=== PATIENT | female | born 1965 | race Caucasian/White ===

== ENCOUNTER 2020-09-26 14:53 | Emergency (ER) | payer BC, SELFPAY ==
[2020-09-26 15:01] VITALS: BP 149/90; PULSE 85; RESP 16; TEMP 36.5; O2SAT 100
--- NOTE | 2020-09-26 15:02 | ED.SKABFB ---
HPI - Skin/Abscess/Foreign Bdy General Chief complaint: Skin/Abscess/Foreign Body Stated complaint: rash Source: patient Mode of arrival: ambulatory Limitations: no limitations History of Present Illness HPI narrative: Patient is a 55-year-old female who presents complaining of rash to right upper thigh x2 days. She reports mildly itchy/burning feeling. She reports sister recently had shingles. Patient denies any significant health conditions. She denies using any new soaps, shampoos, lotions or detergents. She denies all other complaints. MD complaint: rash Related Data Home Medications Medication Instructions Recorded Confirmed levothyroxine [Synthroid] 88 mcg PO DAILY 09/26/20 09/26/20 spironolactone 100 mg PO DAILY 09/26/20 09/26/20 Allergies Allergy/AdvReac Type Severity Reaction Status Date / Time No Known Allergies Allergy Verified 09/26/20 15:06 Review of Systems Review of Systems: Narrative: CONSTITUTIONAL: Denies fever, chills, or sweats. EYES: Denies visual changes, redness, or discharge. ENT: Denies rhinorrhea, congestion, sore throat, or otalgia. CARDIOVASCULAR: Denies chest pain, palpitations, or edema. RESPIRATORY: Denies cough or dyspnea. GASTROINTESTINAL: Denies abdominal pain, nausea, vomiting, or diarrhea. GENITOURINARY: Denies dysuria or hematuria. SKIN: Rash to right upper thigh MUSCULOSKELETAL: Denies back pain, joint pain, or myalgia. NEUROLOGIC: Denies headache, numbness, dizziness, or weakness. PSYCHIATRIC: Denies anxiety or depression. [facility] Past Medical History Medical History (Updated 09/26/20 @ 15:19 by PELON White) No significant past medical history Surgical History Surgical History (Updated 09/26/20 @ 15:19 by PELON White) No significant past surgical history Family History Family History (Updated 09/26/20 @ 15:19 by PELON White) Other No significant family history Social History Social History (Updated 09/26/20 @ 15:19 by PELON White) Smoking status: Never smoker Alcohol intake: never Substance use: never Living arrangements: with family Comments At the time of signature, I have reviewed and agree with nursing past medical, surgical, social, and family history unless otherwise noted. Please see nursing chart for further information. There is no relevant family history pertinent to the presenting complaint. Exam Narrative: Exam Narrative: GENERAL: Well-appearing, well-nourished, and in no acute distress. HEAD: Normocephalic, atraumatic. EYES: EOMI. No redness or drainage. Conjunctiva are normal. ENT: Mucous membranes pink and moist. CHEST: No respiratory distress. HEART: Regular rate and rhythm. EXTREMITIES: Normal range of motion. SKIN: Erythematous, maculopapular rash to right upper thigh, small amount of pustules. NEURO: No focal deficits. Alert and oriented x3. Gait steady. PSYCH: Normal affect. No signs of depression or anxiety. Course Vital Signs Vital signs: Vital Signs Temperature 36.5 C 09/26/20 15:01 Pulse Rate 85 09/26/20 15:01 Respiratory Rate 16 09/26/20 15:01 Blood Pressure 149/90 H 09/26/20 15:01 Pulse Oximetry 100 09/26/20 15:01 Temperature 36.5 C 09/26/20 15:01 Pulse Rate 85 09/26/20 15:01 Respiratory Rate 16 09/26/20 15:01 Blood Pressure 149/90 H 09/26/20 15:01 Pulse Oximetry 100 09/26/20 15:01 Reviewed MDM - Skin/Abscess/Foreign Bdy MDM Narrative Medical decision making narrative: Patient has probable shingles to right upper thigh. Patient started on acyclovir at this time. Patient instructed on pain relief as well. Patient instructed to follow-up with her PCP in 3 to 5 days if symptoms persist. Patient agrees with plan of care. Patient is stable for discharge home with outpatient follow-up as directed. Differential Diagnosis Differential diagnosis: Likely herpes zoster, impetigo and contact dermatitis Critical Care Time Critic
== END 2020-09-26 15:21 | disposition home or self-care (01) ==
PROVIDERS: Emergency Provider Nurse Practitioner; PCP Family Medicine
DX: B02.9 Zoster without complications (principal)
CPT/HCPCS: 99213; G0463

== ENCOUNTER 2020-11-17 07:22 | Outpatient (CLI) | payer BC, SELFPAY ==
[2020-11-17 12:35] LABS: Anion Gap 5 mmol/L (8-16); Blood Urea Nitrogen 14 mg/dL (7-17); Calcium 9.3 mg/dL (8.4-10.2); Carbon Dioxide 31 mmol/L (22-30); Chloride 103 mmol/L (98-107); Estimated Glomerular Filt Rate > 60; Glucose 105 mg/dL (65-105); Potassium 4.6 mmol/L (3.4-5.0); Sodium 139 mmol/L (137-145)
[2020-11-17 12:53] LABS: Free T4 Free Thyroxine 1.46 ng/mL (0.78-2.19); Vitamin D 25 Hydroxy 92.1 ng/mL
[2020-11-17 13:06] LABS: Thyroid Stimulating Hormone 0.963 uIU/mL (0.465-4.680)
[2020-11-20 08:15] LABS: Triiodothyronine T3 Free 3.1 pg/mL (2.3-4.2)
== END 2020-11-17 07:23 | disposition home or self-care (01) ==
LOC: ANHWCLAB 07:28
PROVIDERS: PCP Family Medicine; Referring Provider Dermatology; Visit Provider Internal Medicine Endocrinology, Diabetes & Metabolism
DX: E03.9 Hypothyroidism, unspecified (principal); E04.1 Nontoxic single thyroid nodule; R79.89 Other specified abnormal findings of blood chemistry; Z79.899 Other long term (current) drug therapy
CPT/HCPCS: 36415; 80048; 82306; 84439; 84443; 84481

== ENCOUNTER 2020-11-17 07:58 | Outpatient (CLI) | payer BC, SELFPAY ==
--- NOTE | ~2020-11-17 | US_ITS ---
EXAMINATION: US thyroid EXAM DATE: 11/17/2020 08:36 INDICATION: R79.89 - Other specified abnormal findings of blood chemistry. TECHNIQUE: Multiple grayscale and Doppler images of the thyroid were obtained (by a technologist who performed the scan) and subsequently reviewed. Individual nodules and recommendations may be reporte d in accordance with TI-RADS system as designated by the 2017 ACR White Paper TI-RADS committee. The re is no prior study for comparison. FINDINGS: Right-sided thyroidectomy bed is unremarkable. The left thyroid lobe measures 4.9 x 1.5 x 2.3 cm. Sev eral thyroid nodules, largest measuring 1.4 x 0.8 x 1.5 cm, predominantly solid (2 points), hypoechoi c (2 points), wider than tall, smooth well defined margin, without echogenic foci, category TR4 for t his nodule. Next largest is just slightly smaller than this nodule and has identical overall appeara nce. For category TR 4 lesions, biopsy typically recommended if these reach 1.5 cm in greatest dimension. Both of the nodules have similar appearance and would be unusual to have 2 similar appearing malignan cies. Patient has likely had thyroid ultrasounds at outside institution. Consider asking patient to o btain those studies to compare to this exam, and an addendum can be added. IMPRESSION: 1. Left thyroid nodules up to 1.5 cm. Could consider ultrasound-guided FNA, comparison with outside study if available, or follow-up ultrasound in one year. 2. Unremarkable right thyroidectomy bed. Reviewed, dictated and finalized at location A. IMPRESSION: 1. Left thyroid nodules up to 1.5 cm. Could consider ultrasound-guided FNA, co mparison with outside study if available, or follow-up ultrasound in one year. 2. Unremarkable right thyroidectomy bed.
== END 2020-11-17 07:59 | disposition home or self-care (01) ==
PROVIDERS: PCP Family Medicine; Visit Provider Internal Medicine Endocrinology, Diabetes & Metabolism
DX: E03.9 Hypothyroidism, unspecified (principal); E04.1 Nontoxic single thyroid nodule; R79.89 Other specified abnormal findings of blood chemistry
CPT/HCPCS: 76536

== ENCOUNTER 2021-12-28 07:53 | Outpatient (CLI) | payer BC, SELFPAY ==
--- NOTE | ~2021-12-28 | US_ITS ---
EXAMINATION: US thyroid DATE: 12/28/2021 08:37 INDICATION: Nontoxic single thyroid nodule. TECHNIQUE: Multiple ultrasound images of the thyroid were obtained. COMPARISON: Ultrasound 11/17/2020 FINDINGS: The right thyroid lobe measures 1.5 x 0.8 x 0.9 cm. The left thyroid lobe measures 5.5 x 2.5 x 1.9 c m. In the left thyroid lobe, there is a 1.8 cm mixed cystic and solid, hypoechoic, wider than tall n odule with smooth margin without echogenic foci (TI-RADS TR3), the solid portion of which is stable f rom 11/17/20. In the left thyroid lobe, there is a 1.2 cm solid, hypoechoic, wider than tall nodule wi th smooth margin and punctate echogenic foci (TR5), likely stable in size from 11/17/20. Note that thi s nodule is less well visualized on the prior exam. In the left thyroid lobe, there is a 1.7 cm mixed cystic and solid, hypoechoic, wider than tall nodule with ill-defined margin without echogenic foci (TR3), stable from 11/17/20. IMPRESSION: 1. Stable multinodular goiter. Given the history of outside benign biopsies and right-sided thyroidec andrea, comparison with old imaging is recommended to determine management. Reviewed, dictated and finalized at location A. IMPRESSION: 1. Stable multinodular goiter. Given the history of outside benign biopsies and right-sided thyroidectomy, comparison with old imaging is recommended to deter mine management.
== END 2021-12-28 07:54 | disposition home or self-care (01) ==
LOC: ANHIMG 07:55
PROVIDERS: PCP Family Medicine; Visit Provider Internal Medicine Endocrinology, Diabetes & Metabolism
DX: E04.2 Nontoxic multinodular goiter (principal)
CPT/HCPCS: 76536

== ENCOUNTER 2022-03-13 07:32 | Outpatient (CLI) | payer BC, SELFPAY ==
--- NOTE | ~2022-03-13 | DEXA_ITS ---
Bone Density Report Name: CHICHO DRAPER Age: 56 Sex: Female Ethnicity: White Date of : 1965 Indication: postmenopausal; screening for osteoporosis; parental hip fracture; height loss; Referring Provider: JAROCHO BENITEZ Study: Bone densitometry was performed. Exam Date: March 13, 2022 Accession number: [id number] Bone Density: Region BMD T-score Z-score Classification AP Spine(L1-L4) 1.021 -0.2 0.9 Normal Femoral Neck (Left) 0.799 -0.4 0.7 Normal Total Hip (Left) 0.856 -0.7 0.1 Normal Femoral Neck (Right) 0.763 -0.8 0.4 Normal Total Hip (Right) 0.888 -0.4 0.3 Normal Total Hip Mean 0.872 -0.6 0.2 Normal World Health Organization criteria for BMD impression classify patients as: Normal (T-score at or above -1.0), Osteopenia (T-score between -1.0 and -2.5), or Osteoporosis (T-score at or below -2.5). 10-year Fracture Risk: FRAX not reported because: All T-scores for Spine Total, Hip Total, Femoral Neck at or above -1.0 Clinical Information Provided by Patient: Parent has had a hip fracture Has used the following medications: Vitamin D Patient maximum height was 64 Menopause Age: 50 Drinks caffeinated beverages Onset of menses at age 13 Number of children 0 Impression: The patient has normal bone mass. The patient has risk factors, including: parental hip fracture. Discussion: BONE DENSITY IS ABOVE THE MINIMUM DESIRABLE LEVEL AT ALL SKELETAL SITES TESTED. This patient?s bone mineral density is above the minimum desirable level (T-score -1.0 or better) at all sites measured. The patient should follow a healthful lifestyle (good nutrition with adequate calcium and vitamin D, and appropriate weight-bearing exercise). Follow-Up: Consider repeating this study in 5 years or sooner if there is some new clinical indication. Reported by: [facility] on 03/13/2022 7:54:00 AM. Reviewed, dictated and finalized at location Joe REYES
== END 2022-03-13 07:33 | disposition home or self-care (01) ==
LOC: ANHIMG 07:33
PROVIDERS: PCP Family Medicine; Visit Provider Internal Medicine Endocrinology, Diabetes & Metabolism
DX: Z78.0 Asymptomatic menopausal state (principal); M85.80 Other specified disorders of bone density and structure, unspecified site
CPT/HCPCS: 77080

== ENCOUNTER 2022-12-14 08:34 | Outpatient (CLI) | payer BC, SELFPAY ==
[2022-12-14 10:37] LABS: Free T4 Free Thyroxine 1.61 ng/mL (0.78-2.19); Vitamin D 25 Hydroxy 71.9 ng/mL
== END 2022-12-14 08:35 | disposition home or self-care (01) ==
PROVIDERS: PCP Family Medicine; Visit Provider Internal Medicine Endocrinology, Diabetes & Metabolism
DX: E03.9 Hypothyroidism, unspecified (principal); E04.1 Nontoxic single thyroid nodule; R79.89 Other specified abnormal findings of blood chemistry; M85.80 Other specified disorders of bone density and structure, unspecified site
CPT/HCPCS: 36415; 82306; 84439; 84443

== ENCOUNTER 2023-12-19 07:55 | Outpatient (CLI) | payer BC, SELFPAY ==
--- NOTE | ~2023-12-19 | US_ITS ---
EXAMINATION: US thyroid DATE: 12/19/2023 08:13 INDICATION: Hypothyroidism, unspecified. TECHNIQUE: Multiple ultrasound images of the thyroid were obtained. COMPARISON: Thyroid ultrasound 12/28/2021, 11/17/2021 FINDINGS: The right thyroid lobe measures 1.9 x 1.0 x 0.8 cm. The left thyroid lobe measures 5.2 x 2.4 x 1.9 c m. In the left thyroid lobe, there is a 1.5 cm mixed cystic and solid, hypoechoic, wider than tall n odule with well-defined margins without echogenic foci (TI-RADS TR3), stable from 11/17/20. The left t hyroid lobe, there is a 16 mm hypoechoic, solid, wider than tall nodule with smooth margins without e chogenic foci (TR4), stable from 11/17/20. In the left thyroid lobe, there is a 13 mm solid, hypoechoi c, wider than tall nodule with smooth margins and punctate echogenic foci (TR5), stable from 11/17/20. IMPRESSION: 1. Multinodular goiter status post right hemithyroidectomy, stable from 11/17/2020. Reviewed, dictated and finalized at location E. IMPRESSION: 1. Multinodular goiter status post right hemithyroidectomy, stable from 11/18/19 21.
== END 2023-12-19 07:56 ==
PROVIDERS: PCP Family Medicine; Visit Provider Internal Medicine Endocrinology, Diabetes & Metabolism
DX: E03.9 Hypothyroidism, unspecified (principal); E04.2 Nontoxic multinodular goiter
CPT/HCPCS: 76536

== ENCOUNTER 2023-12-19 08:12 | Outpatient (CLI) | payer BC, SELFPAY ==
[2023-12-19 19:30] LABS: Free T4 Free Thyroxine 1.78 ng/mL (0.78-2.19)
[2023-12-19 19:59] LABS: Thyroid Stimulating Hormone 0.513 uIU/mL (0.465-4.680)
== END 2023-12-19 08:13 | disposition home or self-care (01) ==
LOC: ANHGOSHLAB 08:14
PROVIDERS: PCP Family Medicine; Visit Provider Internal Medicine Endocrinology, Diabetes & Metabolism
DX: E03.9 Hypothyroidism, unspecified (principal); E04.1 Nontoxic single thyroid nodule
CPT/HCPCS: 36415; 84439; 84443

== ENCOUNTER 2024-12-23 07:33 | Outpatient (CLI) | payer BC, SELFPAY ==
--- OUTSIDE RECORDS SUMMARY | 2024-12-23 07:38 | XMS_ITS | Encounter Summary ---
Author Organization [facility] Address 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
--- OUTSIDE RECORDS SUMMARY | 2024-12-23 07:38 | XMS_ITS | Referral Summary ---
Author Organization [facility] Address [address] [place] [address] Care Team Providers Care Film Or Tape Librarian Name Role Phone Kolby Brink MD Primary Care Provider [phone] Encounters Date Type Department Care Team Description 12/12/2024 Telephone [facility] at [address] [place] [phone] Kolby Brink MD Additional Services Or Orders 12/12/2024 Telephone [facility] at [address] [place] [phone] Kolby Brink MD Recommendation Request 11/12/2024 Telephone [facility] at [address] [place] [phone] Kolby Brink MD Additional Services Or Orders from Last 3 Months Allergies No known active allergies Medications SYNTHROID 88 mcg tablet Take 1 tablet (88 mcg total) by mouth business development consultant before breakfast 9 Active multivitamin capsule Take 1 capsule by mouth daily Active Lacto.acidophil us-Bif.animalis 32 billion cell capsule Take 1 capsule by mouth Active Active Problems Problem Noted Date Diagnosed Date Venous stasis 06/28/2021 Assessment & Plan (10/31/2021 11:04 AM CDT): Patient's hemosiderin staining on the right lower extremity has not worsened and there is no wound at that area. She will continue to wear her compression stockings and keep the area moisturized. Assessment & Plan (06/28/2021 12:37 PM PHYSICAL THERAPY INSTRUCTOR): Patient has venous stasis changes of the bilateral lower extremities worse on the right. Plan will be for EVLT with phlebectomies. History of colon polyps 05/20/2021 Overview (05/30/2021): Added automatically from request for surgery [id number] Status post laparoscopic cholecystectomy 021 Varicose veins of leg with pain, bilateral 12/27 Assessment & Plan (10/31/2021 11:04 AM CDT): Patient's phlebectomy sites on her right lower extremity are well healed at this time. She will continue to wear knee-high compression stockings. She will call if she would like to have the left leg done. She says right now it is not bothering her as much but will keep an eye on it over the summer. Assessment & Plan (06/28/2021 12:36 PM PHYSICAL THERAPY INSTRUCTOR): Patient has varicose veins along with significant dilation and reflux of the great saphenous vein. She also has venous stasis changes on her bilateral lower extremities. Plan will be for endovenous laser ablation of the right great saphenous vein along with phlebectomies of the right great saphenous vein. Plan will be to the left leg after this time. She will continue to wear her compression stockings. Assessment & Plan (06/13/2021 1:58 PM PHYSICAL THERAPY INSTRUCTOR): Patient has varicose veins of bilateral lower extremities with pain and tenderness over the top. She has been wearing compression stockings for years and is now more concerned about the thrombosis and bleeding of the right lower extremity varicose veins. Plan will be to have her follow up in 2 weeks with a venous reflux study. At that time we will discuss what the options are for her but she will continue to wear her compression stockings in the meantime. 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 I recommend she continue her Synthroid. Assessment & Plan (06/28/2021 12:36 PM PHYSICAL THERAPY INSTRUCTOR): Followed by her PCP and currently on Synthroid. Assessment & Plan (06/13/2021 1:58 PM PHYSICAL THERAPY INSTRUCTOR): Followed by her PCP and inclusion manager and currently on Synthroid. Resolved Problems Problem Noted Date Diagnosed Date Resolved Date Abdominal pain 12/21/2020 12/28/2020 Acute cholecystitis 12/21/2020 12/29/19 21 Family history of colon cancer 06/28/2020 12/28/2020 Overview (12/28/2020): Added automatically from request for surgery [id number] Added automatically from request for surgery [id number] Left foot pain 05/22/2019 09/28/2020 Assessment & Plan (05/22/2019 11:42 AM CDT): X-ray left foot RICE Pod Naproxen 500 1 q 1 2 Immunizations Immunization Administration Dates Next Due Influenza, Quadrivalent, Rec ombinant, Egg Free, Preservative Free, Intramuscular 05/17/2021,05/19/2020 Influenza, Quadrivalent, Spl it, Intramuscular 05/15/2019 Influenza, Quadrivalent, Spl it, Preservative Free, Intramuscular 05/18/2023,05/12/2022,05/15/2019 Influenza, Unspecified 05/17/2021 Pfizer SARS-CoV-2 Monovalent Vaccination (12+ Yrs) PURPLE 11/14/2020,10/24/2020 Tdap 03/27/2020 Social History Tobacco Use Types Packs/Day Years Used Date Smoking Tobacco: Never Smokeless Tobacco: Never Tobacco Cessation:Counseling Given: Not Answered Alcohol Use Standard Drinks/Week Comments Not Currently 0 (1 standard drink = 0.6 oz pur e alcohol) AUDIT-C Answer Date Recorded Q1: How often do you have a drink containing alc ohol? Monthly or less 01/17/2024 Q2: How many drinks containi ng alcohol do you have on a typical day when you are drinking? 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 Not on file Not on file Last Filed Vital Signs Vital Sign Reading Time Taken Comments Blood Pressure 126/72 01/17/2024 11:22 AM CDT Pulse 77 01/17/2024 11:22 AM CDT Temperature 37.1 C (98.7 F) 01/17/2024 11:22 AM CDT Respiratory Rate 18 01/17/2024 11:2 2 AM CDT Oxygen Saturation 99% 01/17/2024 11: 22 AM CDT Inhaled Oxygen Concentration - - Weight 99.7 kg (219 lb 12.8 oz) 024 11:22 AM CDT Height 160 cm (5' 3 ) 01/17/2024 11:22 AM CDT Body Mass Index 38.94 01/17/2024 11:22 AM CDT Plan of Treatment Not on file Procedures Procedure Name Priority Date/Time Associated Diagnosis Comments SCREENING MAMMOGRAM BILATERAL W TANNER Schedule Routine, Read Routine (OP Routine) 09/15/2024 8:10 AM PHYSICAL THERAPY INSTRUCTOR Family history of breast cancer COLONOSCOPY Routine 06/17/2021 from Last 3 Months or Most Recently Relevant to Health Maintenance Results * Screening Mammogram Bilateral W Tanner (09/15/2024 8:10 AM PHYSICAL THERAPY INSTRUCTOR) Anatomical Region Laterality Modality Breast Bilateral Mammography Impressions 09/15/2024 8:20 AM PHYSICAL THERAPY INSTRUCTOR BI-RADS ATLAS category (overall): 2 - Benign There is no mammographic evidence of malignancy. A 1 year screening mammogram is recommended. The patient has been or will be contacted. We recommend annual screening mammography for women at average risk of breast cancer beginning at age 40, based on guidelines of the [employer] (ACR Practice Parameter for the Performance of Screening and Diagnostic Mammography) and [employer]. For women with and elevated risk of breast cancer, please refer to the ACR Practice Parameter for specific screening recommendations. The patient will be entered into a reminder system with a target due date of 1 year for her next screening exam. Narrative 09/15/2024 8:20 AM PHYSICAL THERAPY INSTRUCTOR Screening Mammogram Bilateral W Tanner: 09/15/24 The study was acquired using full field digital technology and interpreted from soft copy. 2D digital mammographic views, as well as 3D digital tomosynthesis were performed in the CC and MLO projections. CLINICAL: Family history of breast cancer. Medical history includes BRCA 1 Negative. History of breast cancer in Mother. COMPARISONS: 09/14/2023 Screening Mammogram Bilateral W Tanner 09/13/2022 Screening Mammogram Bilateral W Tanner 09/12/2021 Screening Mammogram Bilateral W Tanner BREAST TISSUE: The breasts are almost entirely fatty. FINDINGS: There are stable benign microcalcifications in both breasts. There is no new suspicious finding in either breast on mammogram. Lukasz Murrell MD IMG MAMMO PROCEDURES Final Result * (ABNORMAL) Colonoscopy (06/17/2021) Anatomical Region Laterality Modality Other 06/17/2021 Historical Provider ENDOSCOPY PROCEDURES Colette l Result from Last 3 Months or Most Recently Relevant to Health Maintenance [place] Sub[place] Plan / [place]ayer (Ef fective 2019-Present) Name:Janie Peguero Relation to Subscriber:Self Name:Janie Peguero Payer ID:[id number] (NAIC) Type:HEALTHCARE/EXCHANGE Address: [place] [id number] Care Teams Film Or Tape Librarian Relationship Specialty Start Date End Date Kolby Brink MD PCP - General Family Medicine 05/20/19
--- OUTSIDE RECORDS SUMMARY | 2024-12-23 07:38 | XMS_ITS | Clinical Summary ---
Author Organization [facility] Address [address] [place] [address] Care Team Providers Care Microelectronics Assembler Name Role Phone Kolby Brink MD Primary Care Provider [phone] Allergies No known active allergies Medications SYNTHROID 88 mcg tablet Take 1 tablet (88 mcg total) by mouth maple sugar maker before breakfast 9 Active multivitamin capsule Take [...] moisturized. Assessment & Plan (06/28/2021 12:37 PM WOOD PLANER): Patient has venous stasis changes of the bilateral lower extremities worse on the right. Plan will be for EVLT with phlebectomies. History of colon polyps 05/20/2021 Overview (05/30/2021): Added automatically from request for surgery [id number] Status post laparoscopic cholecystectomy 021 Varicose veins [...] summer. Assessment & Plan (06/28/2021 12:36 PM WOOD PLANER): Patient has varicose veins along with significant [...] stockings. Assessment & Plan (06/13/2021 1:58 PM WOOD PLANER): Patient has varicose veins of bilateral lower [...] (09/28/2020): Added automatically from request for surgery [id number] Screening for colon cancer 06/28/2020 Overview (12/28/2020): Added automatically from request for surgery [id number] Hypothyroidism, unspecified 05/23/2016 Assessment & Plan (10/31/2021 11:05 AM CDT): Followed by her PCP and currently on Synthroid. I recommend she continue her Synthroid. Assessment & Plan (06/28/2021 12:36 PM WOOD PLANER): Followed by her PCP and currently on Synthroid. Assessment & Plan (06/13/2021 1:58 PM WOOD PLANER): Followed by her PCP and formulator and currently on Synthroid. Resolved Problems Problem Noted Date Diagnosed Date Resolved Date Abdominal pain 12/21/2020 12/28/2020 Acute cholecystitis 12/21/2020 12/29/19 21 Family history of colon cancer 06/28/2020 12/28/2020 Overview (12/28/2020): Added automatically from request for surgery [id number] Added automatically from request for surgery [id number] Left foot pain 05/22/2019 09/28/2020 Assessment & Plan (05/22/2019 11:42 AM CDT): X-ray left foot RICE Pod Naproxen 500 1 q 1 2 Encounters Date Type Department Care Team Description 12/12/2024 Telephone [facility] Family Medicine at [address] [address] Kolby Brink MD Additional Services Or Orders 12/12/[address] [facility] at [address] [place] [phone] Kolby Brink MD Recommendation Request 11/12/2024 Telephone [facility] at [address] [place] [phone] Kolby Brink MD Additional Services Or Orders from Last 3 Months Immunizations Immunization Administration Dates Next Due Influenza, Quadrivalent, Rec ombinant, Egg Free, Preservative Free, Intramuscular 05/17/2021,05/19/2020 Influenza, Quadrivalent, Spl it, Intramuscular 05/15/2019 Influenza, Quadrivalent, Spl it, Preservative Free, Intramuscular 05/18/2023,05/12/2022,05/15/2019 Influenza, Unspecified 05/17/2021 Pfizer SARS-CoV-2 Monovalent Vaccination (12+ Yrs) PURPLE 11/14/2020,10/24/2020 Tdap 03/27/2020 Surgical History Surgery Date Site/Laterality Comments THYROID SURGERY 08/06/1993 - 08/05/1994 CHOLECYSTECTOMY 12/22/2020 ENDOVENOUS ABLATION SAPHENOU S VEIN W/ LASER 09/30/2021 Right Medical History Medical History Date Comments Thyroid disease BRCA1 negative Deep vein thrombosis (HCC) Family History Medical History Relation Name Comments Colon cancer Brother Heart disease Father Heart failure Father No Known Problems Maternal Grandfather No Known Problems Maternal Grandmother Arthritis Mother Breast cancer Mother Cancer Mother Deep vein thrombosis Mother Diabetes Mother Heart disease Mother No Known Problems Paternal Grandfather Colon cancer Paternal Grandmother Endometrial cancer Sister Relation Name Status Comments Brother Father Maternal Grandfather Maternal Grandmother Mother Alive Paternal Grandfather Paternal Grandmother Sister Social History Tobacco Use Types Packs/Day Years [...] on file Legal Sex Female 5:23 AM WOOD PLANER Gender Identity Not on file Sexual Orientation Not on file 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 Not on file Not on file Not on file Obstetrics History Para Term AB IAB SAB Ectopic Multiple Livin g Live Births 0 0 0 0 0 0 0 0 0 0 0 Last Filed Vital Signs Vital Sign Reading [...] 01/17/2024 11:22 AM CDT Plan of Treatment Health Maintenance Due Date Last Done Comments Cervical Cancer Screening 1965 Hepatitis C Screening 1965 Hepatitis B Screening 1983 Regular Well Visit/Exam 18-64 1983 Zoster Vaccine (1 of 2) 2015 Covid-19 Vaccine ( season) 2024 06/16/2023, 05/27/2022, 07/10/2021, Additional history exists Colon Cancer Screening-Colonoscopy 06/17/2024 06/17/2021, 07/14/2020 Depression Screening 01/16/2025 01/17/2024, 05/26/2021, 05/22/2019 Breast Cancer Screening-Mammogram 09/15/2025 09/15/2024, 09/14/2023, 09/13/2022, Additional history exists DTaP/Tdap/Td Vaccine (2 - Td or Tdap) 03/27/2030 03/27/2020 Colon Cancer Screening-CT Colonography Discontinued 06/17/2021, 07/14/2020 Colon Cancer Screening-DNA Stool Discontinued 06/17/2021, 07/14/2020 Colon Cancer Screening-FIT Discontinued 06/17/2021, Colon Cancer Screening-Sigmoidoscopy Discontinued 06/17/2021, 07/14/2020 Influenza Vaccine Completed 05/19/2024, , 05/12/2022, Additional history exists Pneumococcal vaccine <65 Aged Out No longer eligible based on patient's age to complete this topic Procedures Procedure Name Priority Date/Time Associated Diagnosis Comments SCREENING MAMMOGRAM BILATERAL W TANNER Schedule Routine, Read Routine (OP Routine) 09/15/2024 8:10 AM WOOD PLANER Family history of breast cancer COLONOSCOPY Routine 06/17/2021 from Last 3 Months or Most Recently Relevant to Health Maintenance Results * Screening Mammogram Bilateral W Tanner (09/15/2024 8:10 AM WOOD PLANER) Anatomical Region Laterality Modality Breast Bilateral Mammography Impressions 09/15/2024 8:20 AM WOOD PLANER BI-RADS ATLAS category (overall): 2 - Benign There is no mammographic evidence of malignancy. A 1 year screening mammogram is recommended. The patient has been or will be contacted. We recommend annual screening mammography for women at average risk of breast cancer beginning at age 40, based on guidelines of the [employer] (ACR Practice Parameter for the Performance of Screening and Diagnostic Mammography) and [employer]. For women with and elevated risk of breast cancer, please refer to the ACR Practice Parameter for specific screening recommendations. The patient will be entered into a reminder system with a target due date of 1 year for her next screening exam. Narrative 09/15/2024 8:20 AM WOOD PLANER Screening Mammogram Bilateral W Tanner: 09/15/24 The [...] [place] Care Teams Microelectronics Assembler Relationship Specialty Start Date End Date Kolby Brink MD PCP - General Family Medicine 05/20/19
--- OUTSIDE RECORDS SUMMARY | 2024-12-23 07:38 | XMS_ITS | Encounter Summary ---
Author Organization [facility] Address [address] [place] [address] Care Team Providers Care Semiconductor Technician Name Role Phone Kolby Brink MD Primary Care Provider [phone] Encounter Details Date Type Department Care Team (Late st Contact Info) Description 12/24/2020 Telephone [facility] Med/Surg [address] [place] [address] Naomi Marie CNA Social History Tobacco Use Types Packs/Day Years Used Date Smoking Tobacco: Never Smokeless Tobacco: Never Alcohol Use Standard Drinks/Week Comments Not Currently 0 (1 standard drink = 0.6 oz pur e alcohol) Comments No Sex and Gender Information Value Date Recorded Sex Assigned at Not on file Legal Sex Female 8:11 PM CDT Gender Identity Female 08/03/2021 1:50 PM STEM LEAD FORMER Sexual Orientation Not on file COVID-19 Exposure Response Date Recorded In the last month, have you been in contact with someone who was confirmed or suspected to have Coronavirus / COVID-19? No / Unsure 12/27/2020 12:32 PM CDT documented as of this encounter Functional Status * RETIRED Are you deaf or do you have serious difficulty hearing Answer Date of Assessment Author Status No 12/21/2020 6:10 PM CDT Activ e * RETIRED Are you blind or do you have serious difficulty seeing, even when wearing glasses? Answer Date of Assessment Author Status No 12/21/2020 6:10 PM CDT Activ e * Do you have serious difficulty walking or climbing stairs? Answer Date of Assessment Author Status No 12/21/2020 6:10 PM Deepa Raines RN Active * Do you have difficulty dressing or bathing? Answer Date of Assessment Author Status No 12/21/2020 6:10 PM Deepa Raines RN Active * Because of a physical, mental, or emotional condition, do you have difficulty doing errands alone such as visiting a doctor's office or shopping? Answer Date of Assessment Author Status No 12/21/2020 6:10 PM Deepa Raines RN Active documented as of this encounter Mental Status * Because of a physical, mental, or emotional condition, do you have serious difficulty concentrating, remembering, or making decisions? Answer Entry Date Author Status No 12/21/2020 6:10 PM Deepa Raines RN Active documented in this encounter Plan of Treatment Not on file documented as of this encounter Goals Goal Patient Goal Type Associated Problems Recent Progress Patient-Stated? Author Health - patient able to perform ADLs independently General No Ivis Cano RN documented as of this encounter Visit Diagnoses Not on filedocumented in this encounter Care Teams Semiconductor Technician Relationship Specialty Start Date End Date Kolby Brink MD PCP - General FAMILY PRACTICE 05/17/20 documented as of this encounter
--- OUTSIDE RECORDS SUMMARY | 2024-12-23 07:38 | XMS_ITS | Data Portability ---
Author Organization [place] - [facility] OFF[facility] Address [address] [place] [address] Care Team Providers Care Lasting Room Supervisor Name Role Phone EDUARDO MCCLOUD Primary Care Provider [phone] Assessment No assessment recorded. Plan of Treatment Reminders Order Date Submit Date Provider Last Modified By Organization Details Last Modified Time Details Appointments ESTABLISH ED PATIENT DETAILED 2024 05:15P M Isacc Jain i, MD Not available Not available Not available Lab None recorded. Referral None recorded. Procedures None recorded. Surgeries None recorded. Imaging stress echocardi ogram 2015 016 DBA_PATCH_ [id number] Not available 07/22/2016 04:47:14 electroca rdiogram, POC 2015 016 DBA_PATCH_ [id number] Not available 07/22/2016 04:47:14 Medication Orders None recorded. Patient TargetsNo targets recorded. Patient Instructions Encounter Date Encounter Id Patient Instructions Last Modified By Organization Details Last Modified Time 12/14/2015 [id number] heart valve disease: care instructions Not available 12/14/2015 16:00:54 mitral valve prolapse: care instructions Not available 12/14/2015 16:00:54 low sodium diet (2,000 milligram): care instructions Not available 07/22/2016 04:47:14 Weight loss, pounds Exercise advised Low cholesterol diet advised Low sodium diet advised. [email or web address] Not available 12/14/2015 15:56:45 Reason for Referral None Reported. Results Created Date Observation Date Name Description Value Unit Range Abnormal Flag Note LastModifiedBy Organization Detail LastModifiedTime 12/14/19 16 01/20/2016 elect rocar diogr am, POC Result Not Available Isacc Mensah MD [address], [place], [address], 12/14/2015 15:22:55 12/14/19 16 12/08/2015 elect rocar diogr am No observ ation record ed. [email or web address] Not Available 2015 09:36:00 12/28/19 16 12/24/2015 stres s echoc ardio gram No observ ation record ed. [email or web address] Not Available 2015 16:39:58 12/14/19 25 12/11/2024 elect rocar diogr am No observ ation record ed. [email or web address] Not Available 2024 10:23:32 Result Notes None recorded. Problems Name Problem SNOMED Code Status Onset Date Resolution Date Notes Provider Name and Address Organization Details Recorded Time Benign essential hypertension 6093921 Active 2024 Crews [place], [place] - [facility] 5 16:48:15 Mitral valve prolapse 979402497 Active 2024 Mars [place], [place] - [facility] 5 16:48:24 Hypothyroidism 19775265 Active 2015 Crew[place], [place] - [facility] 6 11:36:22 Chest pain 18223036 Active 2015 Crews [place], [place] - [facility] 6 11:36:32 Problem Notes None recorded. Procedures Surgical History Date Name Laterality Status Provider Name and Address Organization Details Recorded Time 08/06/19 21 cholecystectomy completed Estefania Miles [place] - [facility] 12/11/2024 19:23:03 08/06/18 94 Thyroid Surgery completed Estefania Miles [place] - [facility] 12/11/2024 19:21:50 Imaging Results Imaging Date Name Status LastModified by Organization Details LastModified Time 12/08/2015 electrocardiogram completed [email or web address] Informa tion not available 12/14/2015 09:36:00 12/24/2015 stress echocardiogram completed [email or web address] Information not available 12/28/2015 16:39:58 12/11/2024 electrocardiogram completed [email or web address] Informa tion not available 12/13/2024 10:23:32 Procedure Notes None recorded. Medical Equipment None Reported. Allergies No known drug allergies Medications Name Sig Start Date Stop Date Status Note LastModified by Organization Details LastModified Time Synthroid 100 mcg tablet 12/13 completed Not Available Not Available Not Available Coated Aspirin 325 mg tablet Take 1 tablet every day by oral route. 12/13 completed Not Available Not Available Not Available Synthroid 88 mcg tablet Take 1 tablet every day by oral route. active Not Available Not Available No t Available promethazin e 25 mg tablet 12/13 completed Not Available Not Available Not Available vitamin B complex 12/08 completed Not Available Not Available Not Available Vitamin D3 12/08 completed Not Available Not Available Not Available GaviLyte-N 420 gram oral solution 12/13 completed Not Available Not Available Not Available sodium,pota ssium,mag sulfates 17.5 gram-3.13 gram-1.6 gram oral soln MIX AND DRINK DIRECTED active Not Available Not Available No t Available Fluvirin 5885-3326 45 mcg (15 mcg x 3)/0.5 mL intramuscul ar suspension 12/13 completed Not Available Not Available Not Available Wegovy 1.7 mg/0.75 mL subcutaneou s pen injector INJECT 1 SYRINGE SUBCUTANE OUSLY ONCE A WEEK active Not Available Not Available No t Available Wegovy 1 mg/0.5 mL subcutaneou s pen injector INJECT 1 MG SUBCUTANE OUSLY ONCE A WEEK, EVERY 7 DAYS, FOR 1 MONTH active Not Available Not Available No t Available Wegovy 0.25 mg/0.5 mL subcutaneou s pen injector INJECT 0.25 MG SUBCUTANE OUSLY ONCE A WEEK FOR WEEKS 1 THROUGH 4 OF THERAPY. active Not Available Not Available No t Available Wegovy 0.5 mg/0.5 mL subcutaneou s pen injector INJECT 0.5MG SUBCUTANE OUSLY ONCE A WEEK, EVERY 7 DAYS active Not Available Not Available No t Available Vitals Date Recorded Body weight Body height Body mass index (BMI) Heart rate Oxygen saturation Oxygen saturation in Arterial blood by Pulse oximetry Systolic blood pressure Diastolic blood pressure Provider Name and Address Organization Details Last Updated DateTime 6 00453.1 9 g 160.02 cm 28.2 kg/m2 69 /min 99 % 99 % 118 mm[Hg] 80 mm[Hg] [facility] 6 15:26:20 Date Recorded Body height Body mass index (BMI) Body weight Heart rate Oxygen saturation Oxygen saturation in Arterial blood by Pulse oximetry Systolic blood pressure Diastolic blood pressure Provider Name and Address Organization Details Last Updated DateTime 5 160.02 cm 33.1 kg/m2 86126.7 7 g 94 /min 99 % 99 % 132 mm[Hg] 82 mm[Hg] Estefania Miles [facility] 5 19:17:11 Social History Question Answer Notes LastModified by [employer] Details LastModified Time Tobacco Smoking Status Never Smoker Mars ho [facility] 12/11/2015 11:37:14 Do You Have An Advance Directive? No Information not available 12/14/2015 What Is Your Level Of Caffeine Consumption? Heavy Information not available 12/14/2015 What Type Of Diet Are You Following? REGULAR Information not available 12/14/2015 Live Alone Or With Others? Alone Information not available 12/14/2015 Marital Status Single Informatio n not available 12/14/2015 How Many Children Do You Have? 0 Information not available 12/14/2015 What Is Your Relationship Status? Single [email or web address] Information not available 12/11/2024 General Stress Level Medium Information not available 12/14/2015 Sex: Unknown Functional Status Question Answer Note LastModified by [employer] Social Details LastModified Time What is your level of alcohol consumption? 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 Moderate Information not available 12/14/2015 Mental Status None recorded. Family History Relationship Description Onset Age of this Age Resolved Age Notes LastModified by Organization Details LastModified Time Father Aortic valve disorder 80 [email or web address] Not available 12/04 15:51:38 Father Irregular heart beat [email or web address] Not available 12/11 19:24:32 Mother Diabetes mellitus [email or web address] Not available 2024 19:23:29 Brother Irregular heart beat [email or web address] Not available 12/11 19:24:32 Sister Irregular heart beat [email or web address] Not available 12/11 19:24:32 Notes:No prematude CAD Medical History Condition Response Thyroid Disease Y Gynecological HistoryNo gynecological history recorded. Obstetrics History GPAL:G 0 P 0 0 0 0 Past Encounters Encounter ID Performer Location Encounter Start Date Encounter Closed Date Diagnosis/Indication Diagnosis SNOMED-CT Code Diagnosis ICD10 Code Diagnosis Note [id number] Isacc Mensah MD [place] [facility] [place] [address] 12/14/2015 15:17:47 12/14/2015 16:01:17 Benign essential hypertension 8825305 I10 Atypical chest pain 1025 78265 R07.89 Mitral valve prolapse 40 4491857 I34.1 [id number] Isacc Mensah MD [place] [facility] [place] [address] 12/11/2024 18:41:11 12/11/2024 19:38:27 Benign essential hypertension 6399463 I10 Mitral valve prolapse 40 7930113 I34.1 Obtain echo to evaluate for structural /functiona l disease. History of hypothyroidism 512645502 Z86.39 Atypical chest pain 1025 26204 R07.89 Treadmill Myoview Stress test, has high [place] Risk score. Has Known CAD, or CAD risk equivalent . To look for any ischemia. Dyslipidemia 437720063 E 78.5 Needs to keep LDL less than 70, and HDL more than 40Will get fasting lipids for follow up Health Concerns Section Related Observation LastModified by Organization Detai ls LastModified Time None Recorded Concern Status LastModified by Organization Details LastModified Time None Recorded Advance Directives Directive N: Payers Insurance Date Sequence Insurance Name Policy Number Policy Mena Covered Member ID Mena Member ID Guarantor Name 12/11/2024 1 [place] [id number] Janie Peguero [id number] Janie Peguero 12/11/2024 1 [place] [id number] Janie Peguero [id number] Janie Peguero Notes Date Note Type Note Provider Name and Address Organization Details Recorded Time 12/14/2015 text/html CC: chest pain 50 years-old Female with no significant medical history in the past is here for follow up She was in ER in 12/08/15 because of Chest pain. EKG showed normal sinus rhythm without acute changes. No known history of CAD, FL, Arrhythmia, or valvular heart disease No orthopnea, no PND's. NO Palpitation. NO leg edema. No side effects from current medications. He has been active. He lost pounds since last visit. Results from this visit, or from the past:EK12/08/15 Normal sinus rhythm. Normal ECG. When compared with ECG of 08-DEC-2015 No significant change was found. 12/08/15: SOD 137, K 3.5, CL 99, CO2 25, GL 93, BUN 18, CR 0.7, TC 158, HDL 67, TR 61, LDL 79, AST 38, ALT 25. Isacc Mensah MD [address] [place], [address], [facility] 12/14/2015 15:57:01 12/11/2024 text/html 12/11/24CC: Rosaline t pain59 years-old Female with h/o benign essential hypertension, mitral valve prolapse and hypothyroidism was referred for cardiac evaluation due to chest pain, had to go to ER She was last seen in the clinic on 12/14/15, since then she is having chest pains on and off been to ER for this year ago Today reports: CC: pt states no concerns at this time .Denies chest pain. pt admits having occasional chest pressure behind the heart.Denies shortness of breath at rest. Has mild dyspnea on exertion.No orthopnea. No PNDs.Denies heart palpitations.Denies dizziness. Denies syncope or near syncope.No ankle or leg edema.No major bleeding events.No reported side effects from medications. Taking medications as prescribed with no missed doses.Denies snoring, daytime somnolence and AM headache.*Last LDL was 79 done on 12/08/15.Pt dose not takes any statins. Previously: *Had negative SE on 12/24/15. *She was in ER in 12/08/15 because of Chest pain. *EKG showed normal sinus rhythm without acute changes. No known history of CAD, FL, Arrhythmia, or valvular heart disease+ Results from this visit, or from the past:*Had negative SE on 12/14/15. EK12/08/15 Normal sinus rhythm. Normal ECG. When compared with ECG of 08-DEC-2015 No significant change was found. 12/08/15: SOD 137, K 3.5, CL 99, CO2 25, GL 93, BUN 18, CR 0.7, TC 158, HDL 67, TR 61, LDL 79, AST 38, ALT 25. Isacc Mensah MD [address] [place], [address], [facility] - [facility] 12/11/2024 19:33:22 OBGyn Episode No OBEpisode recorded.
--- OUTSIDE RECORDS SUMMARY | 2024-12-23 07:38 | XMS_ITS | Encounter Summary ---
Author Organization [email or web address] Address [address] [place] [address] Care Team Providers Care Hydraulic Controls Technician Name Role Phone Conversion, History Primary Care Provider Sharonda briseno Encounter Details Date Type Department Care Team (Late st Contact Info) Description 01/03/2007 Outpatient Historical [place] [address] [facility] [place] [address] [place] [address] Sebaceous Cyst (Primary Dx) Social History Tobacco Use Types Packs/Day Years Used Date Smoking Tobacco: Never Assessed Comments Unknown Sex and Gender Information Value Date Recorded Sex Assigned at Not on file Legal Sex Female 3:29 AM 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
--- OUTSIDE RECORDS SUMMARY | 2024-12-23 07:38 | XMS_ITS | Encounter Summary ---
Author Organization [facility] Address [facility] [place] [address] Care Team Providers Care Sped Teacher Name Role Phone Kolby Brink MD Primary Care Provider [phone] Encounter Details Date Type Department Care Team (Late st Contact Info) Description 07/06/2020 Prep for Procedure [facility] [address] [place], [place] [id number] Darwin Apple MD [address] [place] [address] Social History Tobacco Use Types Packs/Day Years Used Date Smoking Tobacco: Never Smokeless Tobacco: Never Alcohol Use Standard Drinks/Week Comments Not Currently 0 (1 standard drink = 0.6 oz pur e alcohol) Comments Unknown Sex and Gender Information Value Date Recorded Sex Assigned at Not on file Legal Sex Female 8:11 PM CDT Gender Identity Female 08/03/2021 1:50 PM TREATMENT MANAGER Sexual Orientation Not on file COVID-19 Exposure Response Date Recorded In the last month, have you been in contact with someone who was confirmed or suspected to have Coronavirus / COVID-19? No / Unsure 06/25/2020 2:12 PM TREATMENT MANAGER documented as of this encounter Plan of Treatment Not on file documented as of this encounter Results * PRE-SURGICAL/PRE-PROCEDURE CORONAVIRUS (COVID 19) (07/11/2020 9:19 AM TREATMENT MANAGER) CORONAVIRUS SARS COV 2 PCR (RESP) NOT DETECTED NOT DETECTED 07/12/2020 5:16 PM TREATMENT MANAGER [employer] [facility] Comment: A Not Detected (negative) test result for this test means that SARS- CoV-2 RNA was not present in the specimen above the limit of detection. A negative result does not rule out the possibility of COVID-19 and should not be used as the sole basis for treatment or patient management decisions. If COVID-19 is still suspected, based on exposure history together with other clinical findings, re-testing should be considered in consultation with public health authorities. Laboratory test results should always be considered in the context of clinical observations and epidemiological data in making a final diagnosis and patient management decisions. Please review the Fact Sheets and FDA authorized labeling available for health care providers and patients using the following websites: https://www.Dialogfeed.Freespee/home/Covid-19/HCP/NAAT/fact-sheet2 https://www.Dialogfeed.Freespee/home/Covid-19/Patients/NAAT/ fact-sheet2 This test has been authorized by the FDA under an Emergency Use Authorization (EUA) for use by authorized laboratories. Due to the current public health emergency, [facility] is receiving a high volume of samples from a wide variety of swabs and media for COVID-19 testing. In order to serve patients during this public health crisis, samples from appropriate clinical sources are being tested. Negative test results derived from specimens received in non-commercially manufactured viral collection and transport media, or in media and sample collection kits not yet authorized by FDA for COVID-19 testing should be cautiously evaluated and the patient potentially subjected to extra precautions such as additional clinical monitoring, including collection of an additional specimen. Methodology: Nucleic Acid Amplification Test (NAAT) includes RT-PCR or TMA Additional information about COVID-19 can be found at the [facility] website: www.Resultly.Freespee/Covid19. Test performed at [employer] [facility] [address] [address] [place] [id number] Director: GIBSON GUTIÉRREZ DO,MPH FIRST TEST YES 07/11/2020 8:50 AM [facility] EMPLOYED IN HEALTHCARE NO 07/11/2020 8:50 AM [facility] SYMPTOMATIC DEFINED BY CDC NO 07/11/2020 8:50 AM [facility] DATE OF SYMPTOM ONSET UNKNOWN 07/11/2020 9:58 AM TREATMENT MANAGER [facility] HOSPITALIZATION STATUS NO 07/11/2020 8:50 AM TREATMENT MANAGER [facility] PATIENT IN ICU NO 07/11/2020 8:50 AM TREATMENT MANAGER [facility] RESIDENT OF CONGREGATE CARE NO 07/11/2020 8:50 AM TREATMENT MANAGER [facility] NOT 07/11/2020 8:50 AM TREATMENT MANAGER [facility] PATIENT'S RACE WHITE OR 07/11/2020 8:50 AM TREATMENT MANAGER [facility] ETHNICITY NONHISPANIC 07/11/2020 8:50 AM TREATMENT MANAGER [facility] SOURCE (QST) NASOPHARYNGEAL SWAB 07/11/2020 8:50 AM TREATMENT MANAGER [facility] NASOPHARYNGEAL SWAB / Unknown 07/11/2020 9:19 AM TREATMENT MANAGER us Darwin Apple MD MICROBIOLOGY - GENERAL ORDERABLE S Final Result Performing Organization Address City/State/[facility] Co de Phone Number [facility] [address] [place] [address], [employer] [address] documented in this encounter Visit Diagnoses Diagnosis Preop testing- Primary Preoperative examination, unspecified documented in this encounter Additional Health Concerns Infection Onset Date Last Indicated Resolved Time COVID-19 Rule Out 07/11/2020 07/11/2020 07/12/2020 5:16 PM TREATMENT MANAGER documented as of this encounter Care Teams Sped Teacher Relationship Specialty Start Date End Date Kolby Brink MD PCP - General FAMILY PRACTICE 05/17/20 documented as of this encounter
--- OUTSIDE RECORDS SUMMARY | 2024-12-23 07:38 | XMS_ITS | Encounter Summary ---
Author Organization [facility] Address 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
--- OUTSIDE RECORDS SUMMARY | 2024-12-23 07:38 | XMS_ITS | Encounter Summary ---
Author Organization [facility] Address 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 Gender Identity Not on file Sexual Orientation Not on file documented as of this encounter Plan of Treatment Not on file documented as of this encounter Procedures Procedure Name Priority Date/Time Associated Diagnosis Comments MAMMO SCREEN BILAT W OR WO CAD Routine 01/01/2008 2:41 PM CDT documented in this encounter Results * MAMMO DIGITAL SCREEN BILAT (01/01/2008 2:41 PM CDT) Anatomical Region Laterality Modality Breast Bilateral Other 01/01/2008 2:41 PM CDT Narrative 01/01/2008 5:49 PM CDT [facility] [address] [place], [place] [address] Admit Date: 01/01/2008 SUDHIR CHICHO Sex: F Admit Prov: KOKO TRINIDAD Date: 1965 Primary Care Prov: PCP , NONE; DANIEL KEITH CMRN: [id number] W N: [id number] Room: [facility] Ordering Prov: KOKO TRINIDAD Accession Number: [id number] Interpretation BILATERAL SCREENING DIGITAL MAMMOGRAMS WITH COMPUTER ASSISTED DIAGNOSIS, 01/01/2008 Comparison mammograms dating back to 2004. Findings: The parenchyma is moderately dense bilaterally. There is no mass, malignant calcification, lymphadenopathy or other sign of malignancy. The CAD system was utilized. Summary: No mammographic evidence of malignancy. Assessment BIRADS: 1-Negative Recommendation: Normal interval follow-up Dictated by: IVIS FALK Electronically signed by: IVIS FALK 01/01/2008 17:49 Transcribed: 01/01/2008 16:25 DKT Procedure Note Ivis Falk MD - 01/01/[address] [address] Admit Date: 01/01/2008 CHICHO DRAPER Sex: F Admit Prov: KOKO TRINIDAD Date: 1965 Primary Care Prov: PCP , NONE; DANIEL KEITH CMRN: [id number] W N: [id number] Room: [facility] Ordering Prov: KOKO TRINIDAD Interpretation BILATERAL SCREENING DIGITAL MAMMOGRAMS WITH COMPUTER ASSISTEDDIAGNOSIS, 01/01/2008 Comparison mammograms dating back to 2004. Findings: The parenchyma is moderately dense bilaterally. There is nomass, malignant calcification, lymphadenopathy or other sign of malignancy.The CAD system was utilized. Summary: No mammographic evidence of malignancy. Assessment BIRADS: 1-Negative Recommendation: Normal interval follow-up Dictated by: IVIS FALK Electronically signed by: IVIS FALK 01/01/2008 17:49 Transcribed: 01/01/2008 16:25 DKT oKko Trinidad MD MAMMO ORDERABLES Final Result documented in this encounter Visit Diagnoses Diagnosis Other screening mammogram documented in this encounter Care Teams Engineer Fishing Vessel Relationship Specialty Start Date End Date Conversion, History PCP - General 12/17/06 documented as of this encounter
--- OUTSIDE RECORDS SUMMARY | 2024-12-23 07:38 | XMS_ITS | Encounter Summary ---
Author Organization [facility] Address [address] [place] [address] Care Team Providers Care Home Planning Consultant Salesperson Name Role Phone Conversion, History Primary Care Provider Sharonda briseno Encounter Details Date Type Department Care Team (Latest Contact Info) Description 12/17/2006 Outpatient Historical HIS [facility] [place], [place] [address] 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
--- OUTSIDE RECORDS SUMMARY | 2024-12-23 07:38 | XMS_ITS | Encounter Summary ---
Author Organization [facility] Care Team Providers Care Field Contractor Name Role Phone Unknown, Notinfile Primary Care Provider Unavail able Kolby Brink MD Primary Care Provider [phone] Encounter Details Date Type Department Care Team (Latest Contact Info) Description 12/24/2015 Orders Only [facility]IN[facility] ProviderAlex MD [address] [place] [address] Social History Tobacco Use Types Packs/Day Years Used Date Smoking Tobacco: Never Assessed Comments Unknown Sex and Gender Information Value Date Recorded Sex Assigned at Not on file Legal Sex Female 5:23 AM DE ALCOHOLIZER Gender Identity Not on file Sexual Orientation Not on file documented as of this encounter Plan of Treatment Not on file documented as of this encounter Procedures Procedure Name Priority Date/Time Associated Diagnosis Comments CARDIOLOGY REPORT 12/28/2015 12: 00 AM CDT documented in this encounter Results * CARDIOLOGY REPORT (12/28/2015 12:00 AM CDT) Anatomical Region Laterality Modality Other Narrative 12/28/2015 12:00 AM CDT Ordered by an unspecified provider. Historical Provider [facility] Final Result documented in this encounter Visit Diagnoses Not on filedocumented in this encounter Care Teams Field Contractor Relationship Specialty Start Date End Date Unknown, Ishan PCP - General 03/11/18 05/19/19 Kolby Brink MD PCP - General Family Medicine 05/20/19 documented as of this encounter
--- OUTSIDE RECORDS SUMMARY | 2024-12-23 07:38 | XMS_ITS | Clinical Summary ---
Author Organization [facility] Address [address] [place] [address] Phone Care Team Providers Care Leaf Binner Name Role Phone Conversion, History Primary Care Provider Unavai lable Allergies No known active allergies Medications SYNTHROID 88 mcg tablet 05/13/2019 Active spironolactone (ALDACTONE) 100 mg tablet TK 1 T PO QD 03/09/2020 Active Multivitamin Capsule Take 1 Capsule by mouth daily. Active Lacto.acidophil us-Bif.animalis 32 billion cell Capsule Take 1 Capsule by mouth. Active Active Problems Problem Noted Date Diagnosed Date Increased risk of breast cancer 05/19/2024 Encounters Date Type Department Care Team Description 11/04/2024 External Device Data STL ABSTRACTION Provider, Abstract 10/22/2024 External Device Data STL ABSTRACTION Provider, Abstract 10/14/2024 External Device Data STL ABSTRACTION Provider, Abstract 10/14/2024 External Device Data STL ABSTRACTION Provider, Abstract 10/13/2024 External Device Data STL ABSTRACTION Provider, Abstract 10/11/2024 External Device Data STL ABSTRACTION Provider, Abstract 10/10/2024 External Device Data STL ABSTRACTION Provider, Abstract 10/08/2024 External Device Data STL ABSTRACTION Provider, Abstract from Last 3 Months Immunizations Immunization Administration Dates Next Due INFLUENZA VACCINE QUADRIVALENT 6 MOS UP PF IM ,05/12/2022 INFLUENZA VACCINE TRIVALENT SPLIT VIRUS, (6 MOS UP), 0.5ML (PF), IM 05/19/2024 Family History Medical History Relation Name Comments Colon Cancer Brother Breast Cancer Mother Arthritis-rheumatoid Other Family Hx Diabetes Other Family Hx Heart Disease Other Family Hx Osteoporosis Other Family Hx Uterine Cancer Sister Relation Name Status Comments Brother Mother Other Family Hx Alive Sister Social History Tobacco Use Types Packs/Day Years Used Date Smoking Tobacco: Never Passive Smoke Exposure: Never Smokeless Tobacco: Never Tobacco Cessation:Counseling Given: Not Answered Comments No Sex and Gender Information Value Date Recorded Sex Assigned at Not on file 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 Gender Identity Not on file Sexual Orientation Not on file Last Filed Vital Signs Vital Sign Reading Time Taken Comments Blood Pressure 124/82 05/19/2024 9:23 AM CDT Pulse - - Temperature - - Respiratory Rate - - Oxygen Saturation - - Inhaled Oxygen Concentration - - Weight 96.8 kg (213 lb 6.4 oz) 05/19/2024 9:23 A M CDT Height 157.5 cm (5' 2 ) 05/19/2024 9:23 AM CDT Body Mass Index 39.03 05/19/2024 9:23 AM CDT Plan of Treatment Health Maintenance Due Date Last Done Comments Pre-Diabetes and Diabetes Screening 1965 HEPATITIS B VACCINES (1 of 3 - 19+ 3-dose series) 1984 FIT-DNA Q 3 years 2010 Flex Sig/CT Colonography Q 5 years 2010 ZOSTER VACCINE (1 of 2) 2015 FIT/FOBT Q 1 year 05/07/2021 05/07/2020, 05/30/2019 COVID-19 Vaccine ( - 2023-2 5 season) 2024 11/14/2020, 10/24/2020 BREAST CANCER SCREENING 09/15/2025 09/15/19, 09/14/2023, 09/14/2023, Additional history exists PAP SMEAR 05/19/2027 05/19/2024, 05/06, 05/12/2022, Additional history exists CERVICAL CANCER SCREENING 05/19/2029 HPV/Cotest (21-29) 05/19/2029 05/19/2024, 1 , 05/12/2022, Additional history exists HPV/Cotest (30-65) 05/19/2029 05/19/2024, 1 , 05/12/2022, Additional history exists DTAP/TDAP/TD VACCINES (2 - T d or Tdap) 03/27/2030 03/27/2020 COLORECTAL SCREENING 06/17/2031 06/17/2021 Colorectal Cancer Screening 06/17/2031 INFLUENZA VACCINE Completed 05/19/2024, , 05/12/2022, Additional history exists Procedures Procedure Name Priority Date/Time Associated Diagnosis Comments MAMMO 3D HARISH SCREEN BILAT W OR WO CAD Routine 09/15/2024 Increased risk of breast cancer Breast cancer screening by mammogram CERV/VAG CYTO SCREEN PAP RLFX HPV Routine 05/19/2024 9:47 AM CDT Encounter for gynecological examination with abnormal finding POC OCCULT BLOOD, IMMUNO, QUAL, STOOL Routine 05/07/2020 1:44 PM CDT Screening for malignant neoplasm of the rectum from Last 3 Months or Most Recently Relevant to Health Maintenance Results * MAMMO 3D HARISH SCREEN BILAT W OR WO CAD (09/15/2024) Anatomical Region Laterality Modality Breast Bilateral Mammography us Lukasz Murrell MD MAMMO ORDERABLES Final Resul t * CERV/VAG CYTO SCREEN PAP RLFX HPV (05/19/2024 9:47 AM CDT) CLINICAL INFORMATION Williams Ochoa Comment:None given LAST MENSTRUAL PERIOD Williams Ochoa Comment:NONE GIVEN PREV PAP: Williams Ochoa Comment:NONE GIVEN PREV BX: Williams Ochoa Comment:NONE GIVEN SOURCE Williams Ochoa Comment:Endocervix ADEQUACY: Williams Ochoa Comment:SATISFACTORY FOR MELANIE LUATION PAP INTERP Williams Ochoa Comment: Cytology Results: Negative for intraepithelial lesion or malignancy. Atrophic pattern; predominantly parabasal cells COMMENT (PAP TEST) Q uest Toño Ochoa Comment: This Pap test has been evaluated with computer assisted technology. TRUCK CHAUFFEUR: Maryse Ochoa Comment: MMD, CT(ASCP) CT Screening Location: [place] [address], [place] [address] EXPLANATORY NOTE [facility] Comment: EXPLANATORY NOTE: The Pap is a screening test for cervical cancer. It is not a diagnostic test and is subject to false negative and false positive results. It is most reliable when a satisfactory sample, regularly obtained, is submitted with relevant clinical findings and history, and when the Pap result is evaluated along with historic and current clinical information. Test Performed at: [email or web address] [address] [place] [address] Mauro Torres Genital SWAB OF ENDOCERVIX / Unknown 05/19/2024 9:47 AM CDT 05/19/2024 11:20 PM CDT Lukasz Murrell MD PATHOLOGY/CYTOLOGY ORDERABLE S Final Result [facility] [phone] [place] [address] [place] [address] * POC OCCULT BLOOD, IMMUNO, QUAL, STOOL (05/07/2020 1:44 PM CDT) OCCULT BLOOD, IMMUNOASSAY POC Negative Negative [facility] RUG CLEANER HELPER TOWER A [address] INTERNAL KIT QC Pass Pass [facility] RUG CLEANER HELPER TOWER A [address] KIT [address] NUMBER POC [id number] [facility] RUG CLEANER HELPER TOWER A [address] KIT EXPIRATION DATE POC 06/16/21 [facility] RUG CLEANER HELPER TOWER A [address] Stool STOOL SPECIMEN / Unknown 05/07/2020 1:44 PM CDT Lukasz Murrell MD POINT OF CARE TESTING Final Result [facility] RUG CLEANER HELPER TOWER A [address] CLIA# [id number] [address] [facility] [address] [place] [address] from Last 3 Months or Most Recently Relevant to Health Maintenance Insurance Care Teams Leaf Binner Relationship Specialty Start Date End Date Conversion, History PCP - General 12/17/06
--- OUTSIDE RECORDS SUMMARY | 2024-12-23 07:38 | XMS_ITS | Clinical Summary ---
Author Organization [facility] Address [address] [place] [address] Care Team Providers Care Quality Improvement Analyst Name Role Phone Kolby Brink MD Primary Care Provider [phone] Allergies No known active allergies Medications SYNTHROID 88 MCG tablet 05/03/20 Active Multiple Vitamins-Minera ls (MULTIVITAMIN ADULT OR) Active Probiotic Product (PROBIOTIC ADVANCED) Cap Take 1 capsule by mouth see administration instructions. Pt states she takes about 5 times a week. Active Na sulfate-K sulfate-Mg sulfate (SUPREP BOWEL PREP KIT) 17.5-3.13-1.6 GM/177ML SolutionIndicat ions:Screening for colon cancer,Family history of colon cancer,Hx of adenomatous colonic polyps Take 177 mLs by mouth every 12 (twelve) hours. Per GI instructions 354 mL 05/20/20 24 Active Active Problems Problem Noted Date Diagnosed Date Hx of adenomatous colonic polyps 05/20/2024 History of colon polyps 05/20/2021 Overview (05/20/2021): Added automatically from request for surgery [id number] Status post laparoscopic cholecystectomy 021 Symptomatic varicose veins, right 12/27/2020 Acute cholecystitis 12/21/2020 Hair loss disorder 09/28/2020 Screening for colon cancer 06/28/2020 Overview (06/28/2020): Added automatically from request for surgery [id number] Family history of colon cancer 06/28/2020 Overview (06/28/2020): Added automatically from request for surgery [id number] Family history of colon cancer 06/28/2020 Overview (12/21/2020): Added automatically from request for surgery [id number] Hypothyroidism, unspecified 05/23/2016 Immunizations Immunization Administration Dates Next Due Flublok (Quadrivalent) 05/19/2020 PFIZER COVID-19 (ORIGINAL FO RMULATION, PURPLE CAP) mRNA, LNP-S, PF, 30 MCG/0.3 ML DOSE 11/14/2020,10/24/2020 Tdap (Adacel) 03/27/2020 Family History Medical History Relation Comments Colon Cancer Brother Colon Cancer Paternal Grandmother Colon Cancer Paternal Uncle Relation Status Comments Brother Paternal Grandmother Paternal Uncle Social History Tobacco Use Types Packs/Day Years Used Date Smoking Tobacco: Never Smokeless Tobacco: Never Tobacco Cessation:Counseling Given: No Alcohol Use Standard Drinks/Week Comments Not Currently 0 (1 standard drink = 0.6 oz pur e alcohol) PHQ-2 Answer Date Recorded Patient Health Questionnaire-2 Score 0 05/20/2024 Comments No Sex and Gender Information Value Date Recorded Sex Assigned at Not on file Legal Sex Female 8:11 PM CDT Gender Identity Female 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 Sexual Orientation Not on file Last Filed Vital Signs Vital Sign Reading Time Taken Comments Blood Pressure 130/80 05/20/2024 8:35 AM CDT Pulse 69 05/20/2024 8:35 AM CDT Temperature 36.5 C (97.7 F) 05/20/2024 8:35 AM CDT Respiratory Rate 18 05/20/2024 8:35 AM CDT Oxygen Saturation 97% 05/20/2024 8:35 AM CDT Inhaled Oxygen Concentration - - Weight 97.1 kg (214 lb) 05/20/2024 8:35 AM CDT Height 160 cm (5' 3 ) 05/20/2024 8:35 AM CDT Body Mass Index 37.91 05/20/2024 8:35 AM CDT Plan of Treatment Health Maintenance Due Date Last Done Comments Annual Physical 1968 Hepatitis C 1983 Pneumococcal Vaccine: 50+ Years (1 of 1 - PCV) 2015 Zoster Vaccines (1 of 2) 2015 COVID-19 Vaccine (3 - season) 2024 11/14/2020, 10/24/2020 Cervical Cancer Screening Pap Smear (Age 30 to 64) Every 3 Years 05/09/2024 05/09/2021, 05/07/2020, 05/30/2019 PHQ-2 (Physician [place]) 08/06/2024 05/20/2024 Cervical Cancer Screening Pap with HPV Testing (Age 30 to 64) Every 5 Years 05/07/2025 05/07/2020, 05/30/2019 Cervical Cancer Screening with HPV 05/07/2025 Mammogram Screening 09/14/2025 09/14/2023, 09/13/2022, 09/12/2021, Additional history exists DTaP, Tdap and Td Vaccines (2 - Td or Tdap) 03/27/2030 03/27/2020 Colorectal Cancer Screening Colonoscopy (10 Years) 06/17/2031 06/17/2021, 07/14/2020 Meningococcal B Vaccine Aged Out No l onger eligible based on patient's age to complete this topic Meningococcal Vaccine Aged Out No evan blessing eligible based on patient's age to complete this topic RSV Immunizations Under 20 Months Aged Out No longer eligible based on patient's age to complete this topic Goals Goal Patient Goal Type Associated Problems Recent Progress Patient-Stated? Author Health - patient able to perform ADLs independently General No Ivis Cano, RN Insurance [facility] Advance Directives * Full Code (Latest Code Status on File) Date Activated Date Inactivated Comments 12/21/2020 6:27 PM 12/23/2020 10:30 PM Care Teams Quality Improvement Analyst Relationship Specialty Start Date End Date Kolby Brink MD PCP - General FAMILY PRACTICE 05/17/20
--- OUTSIDE RECORDS SUMMARY | 2024-12-23 07:38 | XMS_ITS | Clinical Summary ---
Author Organization [facility] Address [address] [place] [address] Care Team Providers Care Rigger Name Role Phone Unavailable Primary Care Provider Unavailabl e Source Comments [facility],non-owned Affiliates and Associated Physician Practices is amultiple site organization consisting of ambulatory clinics and hospital sitesin [place], [place], [place] and [place]. This disclosure is being madepursuant to the Care Everywhere program and may not contain all information available regarding this patient. Last updated 18.[facility] Allergies No known active allergies Medications * Be aware that medications may not be up to date on this document. Alwaysverify current medications with the patient. Levothyroxine Sodium (SYNTHROID PO) Active SPIRONOLACTONE PO Ac tive Social History Tobacco Use Types Packs/Day Years Used Date Smoking Tobacco: Never Smokeless Tobacco: Never Comments No Sex and Gender Information Value Date Recorded Sex Assigned at Not on file Legal Sex Female 9:25 AM MEDIA SPECIALIST Gender Identity Not on file Sexual Orientation Not on file Last Filed Vital Signs Vital Sign Reading Time Taken Comments Blood Pressure 128/80 09/23/2019 2:04 PM MEDIA SPECIALIST Pulse 91 09/23/2019 2:04 PM MEDIA SPECIALIST Temperature 37.1 C (98.8 F) 09/23/2019 2:04 PM MEDIA SPECIALIST Respiratory Rate 16 09/23/2019 2:04 PM MEDIA SPECIALIST Oxygen Saturation 98% 09/23/2019 2:04 PM MEDIA SPECIALIST Inhaled Oxygen Concentration - - Weight 90.7 kg (200 lb) 09/23/2019 2:04 PM MEDIA SPECIALIST Height 160 cm (5' 3 ) 09/23/2019 2:04 PM MEDIA SPECIALIST Body Mass Index 35.43 09/23/2019 2:04 PM MEDIA SPECIALIST Plan of Treatment Health Maintenance Due Date Last Done Comments COLOGUARD (AGES 45-75) - COLON CA SCREENING [address] COLONOGRAPHY - COLON CA SCREENING 1965 FLEX SIG - COLON CA SCREENING 1965 LIPID TESTING 1965 HIV SCREENING 1980 HEPATITIS C SCREENING 08/07/1983 DTAP/TDAP/TD VACCINES (1 - Tdap) 1984 HEPATITIS B VACCINE (1 of 3 - 19+ 3-dose series) 1984 PNEUMOCOCCAL VACCINE 50+ (1 of 1 - PCV) 2015 ZOSTER VACCINE (1 of 2) 2015 SCREENING FOR DIABETES 09/23/2019 FIT - COLON CA SCREENING 05/30/2020 05/30/2019 PAP SMEAR 05/30/2022 05/30/2019 COVID-19 VACCINE ( - season) 2024 11/14/2020, 10/24/2020 DEPRESSION SCREENING 08/06/2024 INFLUENZA VACCINE (Season Ended) 2025 05/18/2023, 05/12/2022, 05/17/2021, Additional history exists MAMMOGRAM 09/14/2025 09/14/2023, 04/2024, 09/10/2019 COLONOSCOPY - COLON CA SCREENING 06/17/2031 06/17/2021 Colorectal Cancer Screening 06/17/2031 HIB VACCINE Aged Out No longer eligi ble based on patient's age to complete this topic HPV VACCINE Aged Out No longer eligi ble based on patient's age to complete this topic MENINGOCOCCAL (Group B) VACCINE SHARED DECISION-MAKING Aged Out No longer eligible based on patient's age to complete this topic MENINGOCOCCAL GROUPS A/C/Y/W VACCINE Aged Out No longer eligible based on patient's age to complete this topic [place] [address] [place] [address]
[2024-12-23 08:17] LABS: Free T4 Free Thyroxine 1.76 ng/dL (0.78-2.19)
== END 2024-12-23 07:34 | disposition home or self-care (01) ==
LOC: ANHLAB 07:34
PROVIDERS: PCP Family Medicine; Visit Provider Internal Medicine Endocrinology, Diabetes & Metabolism
DX: E03.9 Hypothyroidism, unspecified (principal)
CPT/HCPCS: 36415; 84439; 84443

== ENCOUNTER 2025-02-23 08:51 | Outpatient (CLI) | payer BC, SELFPAY ==
--- OUTSIDE RECORDS SUMMARY | 2025-02-23 08:58 | XMS_ITS | Encounter Summary ---
Author Organization Departing [facility] Address 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
--- OUTSIDE RECORDS SUMMARY | 2025-02-23 08:58 | XMS_ITS | Encounter Summary ---
Author Organization [facility] Address [facility]ly [facility] [place] [address] Care Team Providers Care Damage Prevention Coordinator Name Role Phone Kolby Brink MD Primary Care Provider [phone] Encounter Details Date Type Department Care Team (Late st Contact Info) Description 07/06/2020 Prep for Procedure [facility] [address] [place], [place] [id number] Darwin Apple MD [address] [place] [address] Social History Tobacco Use Types Packs/Day Years Used Date Smoking Tobacco: Never Smokeless Tobacco: Never Alcohol Use Standard Drinks/Week Comments Not Currently 0 (1 standard drink = 0.6 oz pur e alcohol) Comments Unknown Sex and Gender Information Value Date Recorded Sex Assigned at Not on file Legal Sex Female 8:11 PM CDT Gender Identity Female 08/03/2021 1:50 PM HEADHUNTER Sexual Orientation Not on file COVID-19 Exposure Response Date Recorded In the last month, have you been in contact with someone who was confirmed or suspected to have Coronavirus / COVID-19? No / Unsure 06/25/2020 2:12 PM HEADHUNTER documented as of this encounter Plan of Treatment Not on file documented as of this encounter Results * PRE-SURGICAL/PRE-PROCEDURE CORONAVIRUS (COVID 19) (07/11/2020 9:19 AM HEADHUNTER) CORONAVIRUS SARS COV 2 PCR (RESP) NOT DETECTED NOT DETECTED 07/12/2020 5:16 PM HEADHUNTER [facility] Comment: A Not Detected (negative) test result [...] providers and patients using the following websites: https://www.Shopo.TriVascular/home/Covid-19/HCP/NAAT/fact-sheet2 https://www.Shopo.TriVascular/home/Covid-19/Patients/NAAT/ fact-sheet2 This test has been authorized by the FDA under an Emergency Use Authorization (EUA) for use by authorized laboratories. Due to the current public health emergency, [facility] is receiving a high volume of samples [...] about COVID-19 can be found at the [facility] website: www.Nitro.TriVascular/Covid19. Test performed at [facility] [id number] [place] [phone] Director: GIBSON GUTIÉRREZ DO,MPH FIRST TEST YES 07/11/2020 8:50 AM [facility] EMPLOYED IN HEALTHCARE NO 07/11/2020 8:50 AM [facility] SYMPTOMATIC DEFINED BY CDC NO 07/11/2020 8:50 AM [facility] DATE OF SYMPTOM ONSET UNKNOWN 07/11/2020 9:58 AM HEADHUNTER [facility] HOSPITALIZATION STATUS NO 07/11/2020 8:50 AM HEADHUNTER [facility] PATIENT IN ICU NO 07/11/2020 8:50 AM HEADHUNTER [facility] RESIDENT OF CONGREGATE CARE NO 07/11/2020 8:50 AM HEADHUNTER [facility] NOT 07/11/2020 8:50 AM HEADHUNTER [facility] PATIENT'S RACE WHITE OR 07/11/2020 8:50 AM HEADHUNTER [facility] ETHNICITY NONHISPANIC 07/11/2020 8:50 AM HEADHUNTER [facility] SOURCE (QST) NASOPHARYNGEAL SWAB 07/11/2020 8:50 AM HEADHUNTER [facility] NASOPHARYNGEAL SWAB / Unknown 07/11/2020 9:19 AM HEADHUNTER us Darwin Apple MD MICROBIOLOGY - GENERAL ORDERABLE S Final Result Performing Organization Address City/State/[facility] Co de Phone Number [facility] [address] [place] [address], [facility] [address] documented in this encounter Visit Diagnoses Diagnosis Preop testing- Primary Preoperative examination, unspecified documented in this encounter Additional Health Concerns Infection Onset Date Last Indicated Resolved Time COVID-19 Rule Out 07/11/2020 07/11/2020 07/12/2020 5:16 PM HEADHUNTER documented as of this encounter Care Teams Damage Prevention Coordinator Relationship Specialty Start Date End Date Kolby Brink MD PCP - General FAMILY PRACTICE 05/17/20 documented as of this encounter
--- OUTSIDE RECORDS SUMMARY | 2025-02-23 08:58 | XMS_ITS | Encounter Summary ---
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
--- OUTSIDE RECORDS SUMMARY | 2025-02-23 08:58 | XMS_ITS | Clinical Summary ---
Author Organization 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 Gender Identity Not on file Sexual Orientation Not on file Last Filed Vital Signs Vital Sign Reading Time Taken Comments Blood Pressure 124/82 05/19/2024 9:23 AM CDT Pulse - - Temperature - - Respiratory Rate - - Oxygen Saturation - - Inhaled Oxygen Concentration - - Weight 96.8 kg (213 lb 6.4 oz) 05/19/2024 9:23 A M CDT Height 157.5 cm (5' 2) 05/19/2024 9:23 AM CDT Body Mass Index [...] 1 year 05/07/2021 05/07/2020, 05/30/2019 COVID-19 Vaccine (2023-2 5 season) 2024 11/14/2020, 10/24/2020 INFLUENZA VACCINE (#1) 2025 , 05/18/2023, 05/12/2022, Additional history exists BREAST CANCER SCREENING 09/15/2025 09/15/19, 09/14/2023, 09/14/2023, Additional history exists PAP SMEAR 05/19/2027 05/19/2024, 05/06, 05/12/2022, Additional history exists CERVICAL CANCER SCREENING 05/19/2029 HPV/Cotest (21-29) 05/19/2029 05/19/2024, 1 , 05/12/2022, Additional history exists HPV/Cotest (30-65) 05/19/2029 05/19/2024, 1 , 05/12/2022, Additional history exists DTAP/TDAP/TD VACCINES (2 - T d or Tdap) 03/27/2030 03/27/2020 COLORECTAL SCREENING 06/17/2031 06/17/2021 Colorectal Cancer Screening 06/17/2031 Procedures Procedure Name Priority Date/Time Associated Diagnosis Comments MAMMO 3D HAIRSH SCREEN BILAT W OR WO CAD Routine [...] predominantly parabasal cells COMMENT (PAP TEST) Q urakesh Ochoa Comment: This Pap test has been evaluated with computer assisted technology. HEEL LINING PASTER: Maryse Ochoa Comment: MMD, CT(ASCP) CT Screening Location: [address], [place] [address] [address] Toño Ochoa Comment: EXPLANATORY NOTE: The Pap is a screening test for cervical cancer. It is not a diagnostic test and is subject to false negative and false positive results. It is most reliable when a satisfactory sample, regularly obtained, is submitted with relevant clinical findings and history, and when the Pap result is evaluated along with historic and current clinical information. Test Performed at: [place] [address] [place] [address] Mauro Izquierdo Genital SWAB OF ENDOCERVIX / Unknown 05/19/2024 9:47 AM CDT 05/19/2024 11:20 PM CDT Lukasz Murrell MD PATHOLOGY/CYTOLOGY ORDERABLE S Final Result [facility] [phone] [place] [address] [place] [address] * POC OCCULT BLOOD, IMMUNO, QUAL, STOOL (05/07/2020 1:44 PM CDT) OCCULT BLOOD, IMMUNOASSAY POC Negative Negative [facility] MANAGER OF LEARNING TOWER A [address] INTERNAL KIT QC Pass Pass [facility] MANAGER OF LEARNING TOWER A [address]IT [address] POC [phone] [facility] MANAGER OF LEARNING TOWER A [address] KIT EXPIRATION DATE POC 06/16/21 [facility] MANAGER OF LEARNING TOWER A [address] Stool STOOL SPECIMEN / Unknown 05/07/2020 1:44 PM CDT Lukasz Murrell MD POINT OF CARE TESTING Final Result [facility] MANAGER OF LEARNING TOWER A [address] CLIA# [id number] [address] [address] [place], [place] [id number] from Last 3 Months or Most Recently Relevant to Health Maintenance [place] [place] [address] PREFERRED Care Teams Weaver Axminster Relationship Specialty Start Date End Date Conversion, History PCP - General 12/17/06
--- OUTSIDE RECORDS SUMMARY | 2025-02-23 08:58 | XMS_ITS | Patient Health Record ---
Author Organization [facility] Address [address] [place], [place] [id number] Care Team Providers Care Strategic Partnership Specialist Name Role Phone Kolby Brink Unavailable Unavailable Reason For Referral No Information Medications Medication SIG (Take, Route, Frequency, Duration) Notes Start Date End Date Status cholecalciferol 0.025 MG Oral Tablet ORAL cholecalciferol 0.025 MG Ora l TabletOriginal Medicationcholecalciferol 0.025 MG Oral Tablet *Reorder from [employer] for eRx and Interaction Alerts* 6 Active levothyroxine sodium 0.088 MG Oral Tablet [Synthroid] ORAL levothyroxine sodium 0.088 M G Oral Tablet [Synthroid]Original Medicationlevothyroxine sodium 0.088 MG Oral Tablet [Synthroid] *Reorder from [employer] for eRx and Interaction Alerts* 6 Active levothyroxine sodium 0.1 MG Oral Tablet [Levoxyl] ORAL levothyroxine sodium 0.1 MG Oral Tablet [Levoxyl]Original Medicationlevothyroxine sodium 0.1 MG Oral Tablet [Levoxyl] *Reorder from [employer] for eRx and Interaction Alerts* 3 Active Nabumetone 500 MG Oral Tablet ORAL nabumetone 500 MG Oral TabletOriginal Medicationnabumetone 500 MG Oral Tablet *Reorder from [employer] for eRx and Interaction Alerts* 3 Active Plan Of Treatment No Information Insurance Providers Payer Name Payer Address Payer Phone Subscriber Number Group Number Insured Name Patient Relationship to Insured Coverage Start Date Coverage End Date [facility] ([facility] ATTN CLAIMS [address] [place] [address] [id number] CHICHO DRAPER Self - patient is the insured
--- OUTSIDE RECORDS SUMMARY | 2025-02-23 08:58 | XMS_ITS | Encounter Summary ---
Author Organization [facility] Care Team Providers Care Middle School Teacher Name Role Phone Unknown, Notinfile Primary Care Provider Unavail able Kolby Brink MD Primary Care Provider [phone] Encounter Details Date Type Department Care Team (Latest Contact Info) Description 12/24/2015 Orders Only [facility]INCON[facility] ProviderAlex MD [address] [place] [address] Social History Tobacco Use Types Packs/Day Years Used Date Smoking Tobacco: Never Assessed Comments Unknown Sex and Gender Information Value Date Recorded Sex Assigned at Not on file Legal Sex Female 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
--- OUTSIDE RECORDS SUMMARY | 2025-02-23 08:58 | XMS_ITS | Encounter Summary ---
Author Organization [facility] Address 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
--- OUTSIDE RECORDS SUMMARY | 2025-02-23 08:58 | XMS_ITS | Clinical Summary ---
Author Organization [facility] Address [address] [place] [address] Care Team Providers Care Cable Braider Name Role Phone Kolby Brink MD Primary Care Provider [phone] Allergies No known active allergies Medications SYNTHROID [...] (05/20/2021): Added automatically from request for surgery [id number] Status post laparoscopic cholecystectomy 021 Symptomatic varicose veins, right 12/27/2020 Acute cholecystitis 12/21/2020 Hair loss disorder 09/28/2020 Screening for colon cancer 06/28/2020 Overview (06/28/2020): Added automatically from request for surgery [id number] Family history of colon cancer 06/28/2020 Overview (06/28/2020): Added automatically from request for surgery [id number] Family history of colon cancer 06/28/2020 Overview (12/21/2020): Added automatically from request for surgery [id number] Hypothyroidism, unspecified 05/23/2016 Immunizations Immunization Administration Dates [...] CDT Gender Identity Female 08/03/2021 1:50 PM FITTER 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 Sexual Orientation Not on file Last Filed [...] 8:35 AM CDT Height 160 cm (5' 3) 05/20/2024 8:35 AM CDT Body Mass Index [...] Years 05/09/2024 05/09/2021, 05/07/2020, 05/30/2019 PHQ-2 (Physician [place]) 08/06/2024 05/20/2024 Cervical Cancer Screening Pap with [...] independently General No Ivis Cano, RN Insurance [facility] Advance Directives * Full Code (Latest Code Status on File) Date Activated Date Inactivated Comments 12/21/2020 6:27 PM 12/23/2020 10:30 PM Care Teams Cable Braider Relationship Specialty Start Date End Date Kolby Brink MD PCP - General FAMILY PRACTICE 05/17/20
--- OUTSIDE RECORDS SUMMARY | 2025-02-23 08:58 | XMS_ITS | Encounter Summary ---
Author Organization [facility] Address [address] [place] [address] Care Team Providers Care Licensed Investment Sales Assistant Name Role Phone Conversion, History Primary Care Provider Sharonda briseno Encounter Details Date Type Department Care Team (Latest Contact Info) Description 12/17/2006 Outpatient Historical HIS [facility] [place], [place] [address] [facility] [place] [address] [place] [address] Ganglion of Joint (Primary Dx) Social History Tobacco Use Types Packs/Day Years Used Date Smoking Tobacco: Never Assessed Comments Unknown Sex and Gender Information Value Date Recorded Sex Assigned at Not on file Legal Sex Female 3:29 AM 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
--- OUTSIDE RECORDS SUMMARY | 2025-02-23 08:58 | XMS_ITS | Encounter Summary ---
Author Organization [facility] Address [address] [place] [address] Care Team Providers Care Teacher Of The Visually Impaired Name Role Phone Conversion, History Primary Care Provider Sharonda briseno Encounter Details Date Type Department Care Team (Latest Contact Info) Description 02/13/2005 Outpatient Historical HIS [facility] Trinidad, Koko Gamez MD NO ADDRESS ON FILE SCREENING MAMM-MAILG NEOPL-OTHER (Primary Dx) Social History Tobacco Use Types Packs/Day Years Used Date Smoking Tobacco: Never Assessed Comments Unknown Sex and Gender Information Value Date Recorded Sex Assigned at Not on file Legal Sex Female 3:29 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
--- OUTSIDE RECORDS SUMMARY | 2025-02-23 08:59 | XMS_ITS | Clinical Summary ---
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 Assessment & Plan (06/28/2021 12:37 PM FORENSIC PHOTOGRAPHER): Patient has venous stasis changes of the bilateral lower extremities worse on the right. Plan will be for EVLT with phlebectomies. History of colon polyps 05/20/2021 Overview (05/30/2021): Added automatically from request for surgery [id number] Status post laparoscopic cholecystectomy 021 Varicose veins [...] summer. Assessment & Plan (06/28/2021 12:36 PM FORENSIC PHOTOGRAPHER): Patient has varicose veins along with significant [...] stockings. Assessment & Plan (06/13/2021 1:58 PM FORENSIC PHOTOGRAPHER): Patient has varicose veins of bilateral lower [...] (09/28/2020): Added automatically from request for surgery [id number] Screening for colon cancer 06/28/2020 Overview (12/28/2020): Added automatically from request for surgery [id number] Hypothyroidism, unspecified 05/23/2016 Assessment & Plan (10/31/2021 11:05 AM CDT): Followed by her PCP and currently on Synthroid. I recommend she continue her Synthroid. Assessment & Plan (06/28/2021 12:36 PM FORENSIC PHOTOGRAPHER): Followed by her PCP and currently on Synthroid. 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 Resolved Problems Problem Noted Date Diagnosed Date Resolved Date Abdominal pain 12/21/2020 12/28/2020 Acute cholecystitis 12/21/2020 12/29/19 21 Family history of colon cancer 06/28/2020 12/28/2020 Overview (12/28/2020): Added automatically from request for surgery [id number] Added automatically from request for surgery [id number] Left foot pain 05/22/2019 09/28/2020 Assessment & Plan (05/22/2019 11:42 AM CDT): X-ray left foot RICE Pod Naproxen 500 1 q 1 2 Encounters Date Type Department Care Team Description 01/29/2025 Results Follow-Up [facility] at [address] [address] Chest WO Low Dose Protocol 01/28/2025 Telephone [facility] at [address] [address] chest; Call Back 01/16/2025 8:26 AM CDT - 01/16/2025 11:59 PM CDT Hospital Encounter [facility] [address] [place] [address] Pulmonary nodule Discharge Disposition: Discharge to home or self care 12/12/2024 Telephone [facility] at [address] [address] Kolby Brink MD Additional Services Or Orders 12/12/2024 Telephone [facility] at [address] [address] Kolby Brink MD Recommendation Request from Last 3 Months Immunizations Immunization Administration [...] on file Legal Sex Female 5:23 AM FORENSIC PHOTOGRAPHER Gender Identity Not on file Sexual Orientation Not on file 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 Not on file Not [...] 11:22 AM CDT Height 160 cm (5' 3) 01/17/2024 11:22 AM CDT Body Mass Index [...] 07/14/2020 Depression Screening 01/16/2025 01/17/2024, 05/26/2021, 05/22/2019 Influenza Vaccine (#1) 2025 , 05/18/2023, 05/12/2022, Additional history exists Breast Cancer Screening-Mammogram 09/15/2025 09/15/2024, 09/15/2024, 09/15/2024, Additional history exists DTaP/Tdap/Td Vaccine (2 - Td or Tdap) 03/27/2030 03/27/2020 Colon Cancer Screening-CT Colonography Discontinued 06/17/2021, 07/14/2020 Colon Cancer Screening-DNA Stool Discontinued 06/17/2021, 07/14/2020 Colon Cancer Screening-FIT Discontinued 06/17/2021, Colon Cancer Screening-Sigmoidoscopy Discontinued 06/17/2021, 07/14/2020 Pneumococcal vaccine <65 Aged Out No longer eligible based on patient's age to complete this topic Procedures Procedure Name Priority Date/Time Associated Diagnosis Comments CT CHEST WO CONTRAST Schedule Routine, Read Routine (OP Routine) 01/16/2025 8:39 AM CDT Pulmonary nodule SCREENING MAMMOGRAM BILATERAL W TANNER Schedule Routine, Read Routine (OP Routine) 09/15/2024 8:10 AM FORENSIC PHOTOGRAPHER Family history of breast cancer COLONOSCOPY Routine 06/17/2021 from Last 3 Months or Most Recently Relevant to Health Maintenance Results * CT Chest WO Low Dose Protocol (01/16/2025 8:39 AM CDT) Anatomical Region Laterality Modality Body N/A Computed Tomogra phy 01/28/2025 11:3 6 AM CDT Narrative 01/28/2025 12:00 PM CDT EXAM DESCRIPTION: CT CHEST WO CONTRAST REASON FOR STUDY: Lung nodule, 6-8mm, pulmonary nodule TECHNIQUE: CT scan of the chest performed without intravenous contrast using helical scanning technique. Reconstructed coronal and sagittal MPR images reviewed. All images stored on PACS. Automated exposure control was used as a dose optimization technique for this examination. COMPARISON: CT abdomen and pelvis from January 06, 2016 FINDINGS: The sensitivity for detection of solid visceral lesions is diminished without the use of intravenous contrast. LUNGS: 5 mm noncalcified pulmonary nodule anterior left lower lobe (transverse image 148). 6 mm benign calcified granuloma lateral right upper lobe (transverse image 93). 3 mm nodule anterolateral left lower lobe along the fissure (transverse image 176) is probably also calcified and is unchanged from the prior CT. Otherwise, no suspicious nodules or masses. No pneumonia. PLEURA: No effusion. No pneumothorax. MEDIASTINUM/MICHELL: Calcified right hilar lymph nodes in keeping with old granulomatous disease. Otherwise, no identified masses or abnormal nodes. HEART: Heart size is normal with no pericardial effusion. CORONARY ARTERY CALCIFICATION: None. VASCULATURE: No thoracic aortic aneurysm. AXILLA: No adenopathy. CHEST WALL: No masses. No subcutaneous air. HARDWARE/LINES/TUBES: None. UPPER ABDOMEN: Small hiatal hernia. Prior cholecystectomy. No significant abnormality. MUSCULOSKELETAL: Ivhy-mp-nuadavfu multilevel thoracic spondylosis and degenerative disc disease. No acute bony abnormality. OTHER: No other significant abnormality. IMPRESSION: 1. 5 mm noncalcified pulmonary nodule anterior left lower lobe. Per Fleischner Society Guidelines, no follow-up needed if patient is low-risk (and has no known or suspected primary neoplasm). Non-contrast chest CT can be considered in 12 months if patient is high-risk. 2. 6 mm benign calcified granuloma lateral right upper lobe. 3 mm nodule anterolateral left lower lobe along the fissure is probably also calcified and is unchanged from the prior CT. 3. Otherwise, no suspicious pulmonary nodules. No focal infiltrates or effusions. No adenopathy. 4. Small hiatal hernia. 5. Kkfm-fb-zcnxhyiq multilevel thoracic spondylosis and degenerative disc disease. No acute bony abnormality. THIS IS AN ELECTRONICALLY VERIFIED FINAL REPORT 01/28/2025 12:00 PM - Electronically signed by Iain Díaz M.D. RB: CORNELIO Report ID: [id number] Reading Location: [id number] Procedure Note Iain Díaz MD - 01/28/2025 EXAM DESCRIPTION: CT CHEST WO CONTRAST REASON FOR STUDY: Lung nodule, 6-8mm, pulmonary nodule TECHNIQUE: CT scan of the chest performed without intravenous contrastusing helical scanning technique. Reconstructed coronal and sagittal MPR images reviewed. All images stored on PACS. Automated exposure control was usedas a dose optimization technique for this examination. COMPARISON: CT abdomen and pelvis from January 06, 2016 FINDINGS: The sensitivity for detection of solid visceral lesions is diminished without the use of intravenous contrast. LUNGS: 5 mm noncalcified pulmonary nodule anterior left lower lobe (transverse image 148). 6 mm benign calcified granuloma lateral rightupper lobe (transverse image 93). 3 mm nodule anterolateral left lower lobealong the fissure (transverse image 176) is probably also calcified and isunchanged from the prior CT. Otherwise, no suspicious nodules or masses. Nopneumonia. PLEURA: No effusion. No pneumothorax. MEDIASTINUM/MICHELL: Calcified right hilar lymph nodes in keeping with old granulomatous disease. Otherwise, no identified masses or abnormal nodes. HEART: Heart size is normal with no pericardial effusion. CORONARY ARTERY CALCIFICATION: None. VASCULATURE: No thoracic aortic aneurysm. AXILLA: No adenopathy. CHEST WALL: No masses. No subcutaneous air. HARDWARE/LINES/TUBES: None. UPPER ABDOMEN: Small hiatal hernia. Prior cholecystectomy. Nosignificant abnormality. MUSCULOSKELETAL: Zykv-gg-krowizus multilevel thoracic spondylosis and degenerative disc disease. No acute bony abnormality. OTHER: No other significant abnormality. IMPRESSION: 1. 5 mm noncalcified pulmonary nodule anterior left lower lobe. Per Fleischner Society Guidelines, no follow-up needed if patient is low-risk(and has no known or suspected primary neoplasm). Non-contrast chest CT can be considered in 12 months if patient is high-risk. 2. 6 mm benign calcified granuloma lateral right upper lobe. 3 mm nodule anterolateral left lower lobe along the fissure is probably also calcifiedand is unchanged from the prior CT. 3. Otherwise, no suspicious pulmonary nodules. No focal infiltrates or effusions. No adenopathy. 4. Small hiatal hernia. 5. Msjx-ez-gjlvazek multilevel thoracic spondylosis and degenerativedisc disease. No acute bony abnormality. THIS IS AN ELECTRONICALLY VERIFIED FINAL REPORT 01/28/2025 12:00 PM - Electronically signed by Iain Díaz M.D. RB: CORNELIO Report ID: [id number] Reading Location: [id number] Kolby Brink MD IMG CT PROCEDURES Final Resul t * Screening Mammogram Bilateral W Tanner (09/15/2024 8:10 AM FORENSIC PHOTOGRAPHER) Anatomical Region Laterality Modality Breast Bilateral Mammography Impressions 09/15/2024 8:20 AM FORENSIC PHOTOGRAPHER BI-RADS ATLAS category (overall): 2 - Benign There is no mammographic evidence of malignancy. A 1 year screening mammogram is recommended. The patient has been or will be contacted. We recommend annual screening mammography for women at average risk of breast cancer beginning at age 40, based on guidelines of the [employer] (ACR Practice Parameter for the Performance of Screening and Diagnostic Mammography) and [employer]. For women with and elevated risk of breast cancer, please refer to the ACR Practice Parameter for specific screening recommendations. The patient will be entered into a reminder system with a target due date of 1 year for her next screening exam. Narrative 09/15/2024 8:20 AM FORENSIC PHOTOGRAPHER Screening Mammogram Bilateral W Tanner: 09/15/24 The [...] BL CHOICE [place]PO [place] Care Teams Director Telecommunications Relationship Specialty Start Date End Date Kolby Brink MD PCP - General Family Medicine 05/20/19
--- OUTSIDE RECORDS SUMMARY | 2025-02-23 08:59 | XMS_ITS | Clinical Summary ---
Author Organization [facility] Address [address] [place] [address] Care Team Providers Care Ribbon Weaver Name Role Phone Unavailable Primary Care Provider Unavailabl e Source Comments [facility],non-owned Affiliates and Associated Physician Practices is amultiple site organization consisting of ambulatory clinics and hospital sitesin [place], [place], [place] and [place]. This disclosure is being madepursuant to the Care Everywhere program and may not contain all information available regarding this patient. 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 ASSISTANT Gender Identity Not on file Sexual Orientation Not on file Last Filed Vital Signs Vital Sign Reading Time Taken Comments Blood Pressure 128/80 09/23/2019 2:04 PM RETAIL STORE ASSISTANT Pulse 91 09/23/2019 2:04 PM RETAIL STORE ASSISTANT Temperature 37.1 C (98.8 F) 09/23/2019 2:04 PM RETAIL STORE ASSISTANT Respiratory Rate 16 09/23/2019 2:04 PM RETAIL STORE ASSISTANT Oxygen Saturation 98% 09/23/2019 2:04 PM RETAIL STORE ASSISTANT Inhaled Oxygen Concentration - - Weight 90.7 kg (200 lb) 09/23/2019 2:04 PM RETAIL STORE ASSISTANT Height 160 cm (5' 3) 09/23/2019 2:04 PM RETAIL STORE ASSISTANT Body Mass Index 35.43 09/23/2019 2:04 PM RETAIL STORE ASSISTANT Plan of Treatment Health Maintenance Due Date Last Done Comments COLOGUARD (AGES 45-75) - COLON CA SCREENING 1965 CT COLONOGRAPHY - COLON CA SCREENING [...] PAP SMEAR 05/30/2022 05/30/2019 COVID-19 VACCINE ( season) 2024 11/14/2020, 10/24/2020 DEPRESSION SCREENING 08/06/2024 INFLUENZA VACCINE (#1) 2025 , 05/12/2022, 05/17/2021, Additional history exists MAMMOGRAM 09/14/2025 09/14/2023, 04/2024, 09/10/2019 COLON MONITORING 06/17/2031 06/17/2021 COLONOSCOPY - COLON CA SCREENING 06/17/2031 06/17/2021 [...] patient's age to complete this topic [place] [address] [address]
--- OUTSIDE RECORDS SUMMARY | 2025-02-23 08:59 | XMS_ITS | Encounter Summary ---
Author Organization [facility] Address 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 Gender Identity Not on file Sexual Orientation [...] PM CDT Narrative 01/01/2008 5:49 PM CDT [facility] [address] [place], [place] [address] Admit Date: 01/01/2008 SUDHIR CHICHO Sex: F Admit Prov: KOKO TRINIDAD Date: 1965 Primary Care Prov: PCP , NONE; DANIEL KEITH CMRN: [id number] W N: [id number] [facility] Ordering Prov: KOKO TRINIDAD Accession Number: [id number] Interpretation BILATERAL SCREENING DIGITAL MAMMOGRAMS WITH COMPUTER [...] Procedure Note Ivis Falk MD - 01/01/[address] [address] Admit Date: 01/01/2008 CHICHO DRAPER Sex: F Admit Prov: KOKO TRINIDAD Date: 1965 Primary Care Prov: PCP , NONE; DANIEL KEITH CMRN: [id number] W N: [id number] Room: [facility] Ordering Prov: KOKO TRINIDAD Interpretation BILATERAL SCREENING DIGITAL MAMMOGRAMS WITH COMPUTER ASSISTEDDIAGNOSIS, 01/01/2008 Comparison mammograms dating back to 2004. Findings: The parenchyma is moderately dense bilaterally. There is nomass, malignant calcification, lymphadenopathy or other sign of malignancy.The CAD system was utilized. Summary: No mammographic evidence of malignancy. Assessment BIRADS: 1-Negative Recommendation: Normal interval follow-up Dictated by: IVIS FALK Electronically signed by: VIIS FALK 01/01/2008 17:49 Transcribed: 01/01/2008 16:25 DKT Koko Trinidad MD MAMMO ORDERABLES Final Result documented in this encounter Visit Diagnoses Diagnosis Other screening mammogram documented in this encounter Care Teams Communications And Signals Supervisor Relationship Specialty Start Date End Date Conversion, History PCP - General 12/17/06 documented as of this encounter
--- OUTSIDE RECORDS SUMMARY | 2025-02-23 08:59 | XMS_ITS | Referral Summary ---
Author Organization [facility] Address [address] [place] [address] Care Team Providers Care Head Strength And Conditioning Coach Name Role Phone Kolby Brink MD Primary Care Provider [phone] Encounters Date Type Department Care Team Description 01/29/2025 Results Follow-Up [facility] at [address] [address] Chest WO Low Dose Protocol 01/28/2025 Telephone [facility] at [address] [address] chest; Call Back 01/16/2025 8:26 AM CDT - 01/16/2025 11:59 PM CDT Hospital Encounter [facility] [address] [place] [address] Pulmonary nodule Discharge Disposition: Discharge to home or self care 12/12/2024 Telephone [facility] at [address] [address] Kolby Brink MD Additional Services Or Orders 12/12/2024 Telephone 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 Assessment & Plan (06/28/2021 12:37 PM BI TECHNICAL LEAD): Patient has venous stasis changes of the bilateral lower extremities worse on the right. Plan will be for EVLT with phlebectomies. History of colon polyps 05/20/2021 Overview (05/30/2021): Added automatically from request for surgery [id number] Status post laparoscopic cholecystectomy 021 Varicose veins [...] summer. Assessment & Plan (06/28/2021 12:36 PM BI TECHNICAL LEAD): Patient has varicose veins along with significant [...] stockings. Assessment & Plan (06/13/2021 1:58 PM BI TECHNICAL LEAD): Patient has varicose veins of bilateral lower [...] (09/28/2020): Added automatically from request for surgery [id number] Screening for colon cancer 06/28/2020 Overview (12/28/2020): Added automatically from request for surgery [id number] Hypothyroidism, unspecified 05/23/2016 Assessment & Plan (10/31/2021 11:05 AM CDT): Followed by her PCP and currently on Synthroid. I recommend she continue her Synthroid. Assessment & Plan (06/28/2021 12:36 PM BI TECHNICAL LEAD): Followed by her PCP and currently on Synthroid. Assessment & Plan (06/13/2021 1:58 PM BI TECHNICAL LEAD): Followed by her PCP and neurology hospitalist and currently on Synthroid. 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 Prior cholecystectomy. No significant abnormality. MUSCULOSKELETAL: Dpdu-nc-azmhnqxk multilevel thoracic spondylosis and degenerative disc disease. [...] No adenopathy. 4. Small hiatal hernia. 5. Yewq-iu-eoatylla multilevel thoracic spondylosis and degenerative disc disease. No acute bony abnormality. THIS IS AN ELECTRONICALLY VERIFIED FINAL REPORT 01/28/2025 12:00 PM - Electronically signed by Iain Díaz M.D. RB: CORNELIO Report ID: [id number] Reading Location: [place] [address] Procedure Note Iain Díaz MD - 01/28/2025 [...] hiatal hernia. Prior cholecystectomy. Nosignificant abnormality. MUSCULOSKELETAL: Tuid-st-ryubrhhu multilevel thoracic spondylosis and degenerative disc disease. [...] No adenopathy. 4. Small hiatal hernia. 5. Nhqa-lr-uoxkzxot multilevel thoracic spondylosis and degenerativedisc disease. No acute bony abnormality. THIS IS AN ELECTRONICALLY VERIFIED FINAL REPORT 01/28/2025 12:00 PM - Electronically signed by Iain Díaz M.D. RB: CORNELIO Report ID: [id number] Reading Location: [place] [address] Kolby Brink MD [facility] PROCEDURES Final Resul t * Screening Mammogram Bilateral W Tanner (09/15/2024 8:10 AM BI TECHNICAL LEAD) Anatomical Region Laterality Modality Breast Bilateral Mammography Impressions 09/15/2024 8:20 AM BI TECHNICAL LEAD BI-RADS ATLAS category (overall): 2 - Benign There is no mammographic evidence of malignancy. A 1 year screening mammogram is recommended. The patient has been or will be contacted. We recommend annual screening mammography for women at average risk of breast cancer beginning at age 40, based on guidelines of the [place] [employer] (ACR Practice Parameter for the Performance of Screening and Diagnostic Mammography) and [place] [employer]. For women with and elevated risk of breast cancer, please refer to the ACR Practice Parameter for specific screening recommendations. The patient will be entered into a reminder system with a target due date of 1 year for her next screening exam. Narrative 09/15/2024 8:20 AM BI TECHNICAL LEAD Screening Mammogram Bilateral W Tanner: 09/15/24 The [...] Most Recently Relevant to Health Maintenance [place] Care Teams Head Strength And Conditioning Coach Relationship Specialty Start Date End Date Kolby Brink MD PCP - General Family Medicine 05/20/19
--- OUTSIDE RECORDS SUMMARY | 2025-02-23 08:59 | XMS_ITS | Encounter Summary ---
Author Organization [facility] Address [address] [place] [address] Care Team Providers Care Hand Worker Name Role Phone Kolby Brink MD Primary Care Provider [phone] Reason for Referral * MRI/CAT/PET Scan (Routine) - Pending Review Specialty Diagnoses / Procedures Referred By Contac t Referred To Contact Radiology Diagnoses Pulmonary nodule Procedures CT Chest WO Contrast CT Chest WO Contrast Kolby Brink MD [address] [place] [address] [address] [place] [address] Phone: tel: fax: [address] [address] Referral ID Status Reason Start Date Expiration Date V isits Requested Visits Authorized [id number] Pending Review 01/30/2025 03/01/2026 1 1 Encounter Details Date Type Department Care Team (Late st Contact Info) Description 01/29/2025 Results Follow-Up [facility] Family Medicine at [address] [place] [phone] Kolby Brink MD [address] [place] [address] Chest WO Low Dose Protocol Social History Tobacco Use Types Packs/Day Years [...] on file Legal Sex Female 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 Gender Identity Not on file Sexual Orientation Not on file 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
[2025-02-23 10:40] LABS: Free T4 Free Thyroxine 1.43 ng/dL (0.78-2.19)
[2025-02-23 10:55] LABS: Thyroid Stimulating Hormone 0.716 uIU/mL (0.465-4.680)
== END 2025-02-23 08:52 | disposition home or self-care (01) ==
LOC: ANHLAB 08:53
PROVIDERS: PCP Family Medicine; Visit Provider Internal Medicine Endocrinology, Diabetes & Metabolism
DX: E03.9 Hypothyroidism, unspecified (principal)
CPT/HCPCS: 36415; 84439; 84443

== ENCOUNTER 2025-06-25 07:33 | Outpatient (CLI) | payer BC, SELFPAY ==
--- OUTSIDE RECORDS SUMMARY | 2025-06-25 07:40 | XMS_ITS | Clinical Summary ---
Author Organization [facility] Address [address] [place] [address] Phone Care Team Providers Care Material Scheduler Name Role Phone Conversion, History Primary Care Provider Unavai lable Allergies No known active allergies Medications SYNTHROID 88 mcg tablet 9 Active Multivitamin Capsule Take 1 Capsule by mouth daily. Active Lacto.acidophi isac-Bif.animal is 32 billion cell Capsule Take 1 Capsule by mouth. Active semaglutide, weight loss, (Wegovy) 0.5 mg/0.5 mL Pen Injector INJECT 0.5MG SUBCUTANEOUSLY ONCE A WEEK, EVERY 7 DAYS Active Active Problems Problem Noted Date Diagnosed Date Increased risk of breast cancer 05/19/2024 Encounters Date Type Department Care Team Description 06/23/2025 External Device Data STL ABSTRACTION Provider, Abstract 06/03/2025 External Device Data STL ABSTRACTION Provider, Abstract 06/02/2025 External Device Data STL ABSTRACTION Provider, Abstract 05/25/2025 Results Follow-Up [facility] ACID LEVELER - [address] [address] Chandan Ingram MD CERV/VAG CYTO AGE BASED SCREEN PAP 05/21/2025 9:00 AM CDT Office Visit [facility] ACID LEVELER - [address] [place] [address] Chandan Ingram MD Well woman exam with routine gynecological exam (Primary Dx); Need for influenza vaccination; At high risk for breast cancer from Last 3 Months Immunizations Immunization Administration Dates Next Due INFLUENZA VACCINE QUADRIVALENT 6 MOS UP PF IM ,05/12/2022 INFLUENZA VACCINE TRIVALENT SPLIT VIRUS, (6 MOS UP), 0.5ML (PF), IM 05/21/2025,05/19/2024 Family History Medical History Relation Name Comments [...] Not Answered Alcohol Use Standard Drinks/Week Comments Yes 0 (1 standard drink = 0.6 oz pur e alcohol) rare Comments No Sex and Gender Information Value Date Recorded Sex Assigned at Not on file Legal Sex Female 3:29 AM PLUGMAN Gender Identity Not on file Sexual Orientation Not on file Last Filed Vital Signs Vital Sign Reading Time Taken Comments Blood Pressure 100/70 05/21/2025 9:06 AM CDT Pulse 74 05/21/2025 9:06 AM CDT Temperature - - Respiratory Rate - - Oxygen Saturation 99% 05/21/2025 9:06 AM CDT Inhaled Oxygen Concentration - - Weight 77.8 kg (171 lb 9.6 oz) 05/21/2025 9:06 A M CDT Height 156.5 cm (5' 1.61) 05/21/2025 9:06 AM CD T Body Mass Index 31.78 05/21/2025 9:06 AM CDT Plan of Treatment Health Maintenance Due Date Last Done Comments Pre-Diabetes and Diabetes Screening 1965 HEPATITIS B VACCINES (1 of 3 - 19+ 3-dose series) 1984 FIT-DNA Q 3 years 2010 Flex Sig/CT Colonography Q 5 years 2010 ZOSTER VACCINE (1 of 2) 2015 FIT/FOBT Q 1 year 05/07/2021 05/07/2020, 05/30/2019 COVID-19 Vaccine (3 - 2024-2 6 season) 2025 11/14/2020, 10/24/2020 BREAST CANCER SCREENING 09/15/2025 09/15/19, 09/15/2024, 09/15/2024, Additional history exists PAP SMEAR 05/21/2028 05/21/2025, 05/06, 05/18/2023, Additional history exists DTAP/TDAP/TD VACCINES (2 - T d or Tdap) 03/27/2030 03/27/2020 CERVICAL CANCER SCREENING 05/21/2030 HPV/Cotest (21-29) 05/21/2030 05/21/2025, 1 , 05/18/2023, Additional history exists HPV/Cotest (30-65) 05/21/2030 05/21/2025, 1 , 05/18/2023, Additional history exists COLORECTAL SCREENING 06/17/2031 06/17/2021 Colorectal Cancer Screening 06/17/2031 INFLUENZA VACCINE Completed 05/21/2025, , 05/18/2023, Additional history exists Procedures Procedure Name Priority Date/Time Associated Diagnosis Comments CERV/VAG CYTO AGE BASED SCREEN PAP Routine 05/21/2025 11:57 AM CDT Well woman exam with routine gynecological exam MAMMO 3D HARISH SCREEN BILAT W OR WO CAD Routine 09/15/2024 Increased risk of breast cancer Breast cancer screening by mammogram POC OCCULT BLOOD, IMMUNO, QUAL, STOOL Routine 05/07/2020 1:44 PM CDT Screening for malignant neoplasm of the rectum from Last 3 Months or Most Recently Relevant to Health Maintenance Results * CERV/VAG CYTO AGE BASED SCREEN PAP (05/21/2025 11:57 AM CDT) COMMENT (PAP): [facility] Comment: This order for age-based cervical cancer and STI screening follows ACOG guidelines(PB 168, 140, DFY265). See individual assays for performing site location. CLINICAL INFORMATION [facility] Comment:None given LAST MENSTRUAL PERIOD [facility] Comment:NONE GIVEN PREV PAP: [facility] Comment:NONE GIVEN PREV BX: [facility] Comment:NONE GIVEN SOURCE [facility] Comment:Endocervix ADEQUACY: [facility] Comment:SATISFACTORY FOR MELANIE LUATION PAP INTERP [facility] Comment: Cytology Results: Negative for intraepithelial lesion or malignancy. Atrophic pattern; predominantly parabasal cells COMMENT (PAP TEST) Q uest [facility] Comment: This Pap test has been evaluated with the ThinPrep(R) Imaging System. RUG SIZER: Mary[facility] Comment: LM, CT(ASCP) CT Screening Location: [place] [address] [place] [address] CLIA: [id number] Slide preparation performed at: [facility], [address] CLIA: [id number] EXPLANATORY NOTE Que [facility] Comment: EXPLANATORY NOTE: The Pap is a screening test for cervical cancer. It is not a diagnostic test and is subject to false negative and false positive results. It is most reliable when a satisfactory sample, regularly obtained, is submitted with relevant clinical findings and history, and when the Pap result is evaluated along with historic and current clinical information. HPV E6/E7 Not Detected Not Detected [facility] Comment: Methodology: [employer]-Mediated Amplification This assay detects E6/E7 viral messenger RNA (mRNA) from 14 high-risk HPV types (16,18,31,33,35,39,45,51,52,56,58,59,66,68). Cervical sources are required for HPV testing. If a vaginal source from a patient who has had a total hysterectomy with removal of cervix was submitted, please contact the testing laboratory for alternative testing options. For additional information, please refer to http://education.[employer]faq/FRU297m6 (This link if provided for information/ educational purposes only.) Test Performed at: [facility] [address] [address] Satish HANDLEY Genital SWAB OF ENDOCERVIX / Unknown 05/21/2025 11:57 AM CDT 05/22/2025 3:44 PM CDT Chandan Ingram MD PATHOLOGY/CYTOLOGY ORDERABLES Final Result Performing Organization Address City/[facility]/ZIP Co de Phone Number [facility] [phone] [place] [address] [place] [address] * MAMMO 3D HARISH SCREEN BILAT W OR WO CAD (09/15/2024) Anatomical Region Laterality Modality Breast Bilateral Mammography Lukasz Murrell MD MAMMO ORDERABLES Final Resul t * POC OCCULT BLOOD, IMMUNO, QUAL, STOOL (05/07/2020 1:44 PM CDT) OCCULT BLOOD, IMMUNOASSAY POC Negative Negative [facility] ACID LEVELER [address] INTERNAL KIT QC Pass Pass [facility] ACID LEVEL[facility] [address] KIT [address] POC [id number] [facility] ACID LEVELER [address] KIT EXPIRATION DATE POC 06/16/21 [facility] ACID LEVELER [address] Stool STOOL SPECIMEN / Unknown 05/07/2020 1:44 PM CDT Lukasz Murrell MD POINT OF CARE TESTING Final Result Performing Organization Address City/[facility] Co de Phone Number [facility] ACID LEVELER [address] CLIA# [id number] [address] [address] [place] [address] from Last 3 Months or Most Recently Relevant to Health Maintenance [place] [address] [place] [address] FELIX PREFERRED Care Teams Material Scheduler Relationship Specialty Start Date End Date Conversion, History PCP - General 12/17/06
--- OUTSIDE RECORDS SUMMARY | 2025-06-25 07:40 | XMS_ITS | Clinical Summary ---
Author Organization [facility] Address [address] [place] [address] Care Team Providers Care Picu Nurse Name Role Phone Kolby Brink MD Primary Care Provider [phone] Allergies No known active allergies Medications SYNTHROID 88 mcg tablet Take 1 tablet (88 mcg total) by mouth granular operator before breakfast 9 Active multivitamin capsule Take 1 capsule by mouth daily Active Lacto.acidophil us-Bif.animalis 32 billion cell capsule Take 1 capsule by mouth Active Wegovy 1.7 mg/0.75 mL auto-injector every 7 days 5 Active tiZANidine (ZANAFLEX) 4 mg tabletIndicatio ns:Chronic bilateral low back pain with right-sided sciatica Take 1 tablet (4 mg total) by mouth nightly as needed for muscle spasms 30 tablet 5 Active nitroglycerin (NITROSTAT) 0.[address] 1 tablet (0.4 mg total) under the tongue every 5 (five) minutes as needed for chest pain May repeat dose q 5 min, up to 3 doses total 30 tablet 1 5 03/24/20 26 Active Active Problems Problem Noted Date Diagnosed Date Nonrheumatic mitral valve regurgitation 04/30/20 25 MVP (mitral valve prolapse) 03/03/2025 Lipid screening 03/03/2025 Atypical chest pain 03/03/2025 Obesity (BMI 30.0-34.9) 03/03/2025 Venous stasis 06/28/2021 Assessment & Plan (10/31/2021 11:04 AM CDT): Patient's hemosiderin staining on the right lower extremity has not worsened and there is no wound at that area. She will continue to wear her compression stockings and keep the area moisturized. Assessment & Plan (06/28/2021 12:37 PM SHOP TAILOR): Patient has venous stasis changes of the bilateral lower extremities worse on the right. Plan will be for EVLT with phlebectomies. History of colon polyps 05/20/2021 Overview (05/30/2021): Added automatically from request for surgery [id number] Status post laparoscopic cholecystectomy 021 Varicose veins [...] summer. Assessment & Plan (06/28/2021 12:36 PM SHOP TAILOR): Patient has varicose veins along with significant [...] stockings. Assessment & Plan (06/13/2021 1:58 PM SHOP TAILOR): Patient has varicose veins of bilateral lower [...] (09/28/2020): Added automatically from request for surgery [id number] Screening for colon cancer 06/28/2020 Overview (12/28/2020): Added automatically from request for surgery [id number] Hypothyroidism, unspecified 05/23/2016 Assessment & Plan (10/31/2021 11:05 AM CDT): Followed by her PCP and currently on Synthroid. I recommend she continue her Synthroid. Assessment & Plan (06/28/2021 12:36 PM SHOP TAILOR): Followed by her PCP and currently on Synthroid. 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 Resolved Problems Problem Noted Date Diagnosed Date Resolved Date Abdominal pain 12/21/2020 12/28/2020 Acute cholecystitis 12/21/2020 12/29/19 21 Family history of colon cancer 06/28/2020 12/28/2020 Overview (12/28/2020): Added automatically from request for surgery [id number] Added automatically from request for surgery [id number] Left foot pain 05/22/2019 09/28/2020 Assessment & Plan (05/22/2019 11:42 AM CDT): X-ray left foot RICE Pod Naproxen 500 1 q 1 2 Encounters Date Type Department Care Team Description 04/30/2025 8:30 AM CDT Office Visit [facility] Cardiology at [address] [place] [address] Philip Ro MD MVP (mitral valve prolapse) (Primary Dx); Atypical chest pain; Venous stasis; Hypothyroidism, unspecified type; Nonrheumatic mitral valve regurgitation 04/24/2025 9:02 AM CDT - 04/24/2025 11:59 PM CDT Hospital Encounter [facility] [address] [place] [phone] Atypical chest pain; Abnormal stress test Discharge Disposition: Discharge to home or self care 04/24/2025 Results Follow-Up [facility] Cardiology [address] [place] [address] Philip Ro MD CTA Heart and Coronary Arteries W Morphology when Performed 04/14/2025 Telephone [facility] at [place] [address] [facility] [address] [place] [address] Kolby Brink MD Medical Question/Miscellaneou s from Last 3 Months Immunizations Immunization Administration [...] disease BRCA1 negative Deep vein thrombosis (HCC) Lumbar facet arthropathy Spondylolisthesis, lumbar region DDD (degenerative disc disease), lumbar Family History Medical History Relation Name Comments [...] on file Legal Sex Female 5:23 AM SHOP TAILOR Gender Identity Not on file Sexual Orientation Not on file 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 Not on file Not on file Not on file Obstetrics History Para Term AB IAB SAB Ectopic Multiple Livin g Live Births 0 0 0 0 0 0 0 0 0 0 0 Last Filed Vital Signs Vital Sign Reading Time Taken Comments Blood Pressure 112/64 04/30/2025 8:21 AM CDT Pulse 70 04/30/2025 8:21 AM CDT Temperature 37.1 C (98.7 F) 01/17/2024 11:22 AM CDT Respiratory Rate 16 03/03/2025 1:43 PM CDT Oxygen Saturation 99% 04/30/2025 8:21 AM CDT Inhaled Oxygen Concentration - - Weight 77.6 kg (171 lb) 04/30/2025 8:21 AM CDT Height 160 cm (5' 3) 04/30/2025 8:21 AM CDT Body Mass Index 30.29 04/30/2025 8:21 AM CDT Plan of Treatment Health Maintenance Due Date Last Done Comments Cervical Cancer Screening 1965 Hepatitis C Screening 1965 Hepatitis B Screening 1983 Regular Well Visit/Exam 18-64 1983 Zoster Vaccine (1 of 2) 2015 Colon Cancer Screening-Colonoscopy 06/17/2024 06/17/2021, 07/14/2020 Depression Screening 01/16/2025 01/17/2024, 05/26/2021, 05/22/2019 Covid-19 Vaccine ( season) 2025 06/16/2023, 05/27/2022, 07/10/2021, Additional history exists Influenza Vaccine (#1) 2025 , 05/18/2023, 05/12/2022, [...] Name Priority Date/Time Associated Diagnosis Comments CT HEART MORPHOLOGY AND CORONARY ARTERIES W CONTRAST Schedule Routine, Read Routine (OP Routine) 04/24/2025 9:57 AM CDT Atypical chest pain Abnormal stress test SCREENING MAMMOGRAM BILATERAL W TANNER Schedule Routine, Read Routine (OP Routine) 09/15/2024 8:10 AM SHOP TAILOR Family history of breast cancer COLONOSCOPY Routine 06/17/2021 from Last 3 Months or Most Recently Relevant to Health Maintenance Results * CTA Heart and Coronary Arteries W Morphology when Performed (04/24/2025 9:57 AM CDT) Anatomical Region Laterality Modality Chest N/A Computed Tomogra phy 04/24/2025 10:4 7 AM CDT Impressions 04/24/2025 10:58 AM CDT Coronary calcium score is 0. No obstructive coronary artery disease. Dictated by: Baldemar Guevara MD The radiology attending physician has personally reviewed this study, and had reviewed and/or edited this written report and agrees with it. Electronically signed by: Alana Hall M.D. Narrative 04/24/2025 10:58 AM CDT EXAMINATION: CORONARY CT ANGIOGRAM HISTORY: Chest pain with nonspecific abnormal stress test. TECHNIQUE: CT angiography of the coronary arteries was performed after the administration of 100 mL of Optiray 350. Images were also obtained precontrast for the purposes of calcium scoring. The patient's heart rate and blood pressure at the time of the examination were 67-7 8 beats per minute. Images were transferred to a 3D workstation for additional post-processing. FINDINGS: The coronary arteries are left system dominant. Right coronary system: No calcified or noncalcified atherosclerotic plaque. Left coronary system: No calcified or noncalcified atherosclerotic plaque. The calculated calcium score is 0. Other findings: Small hiatal hernia. Old granulomatous disease. Procedure Note Alana Hall MD - 04/24/2025 EXAMINATION: CORONARY CT ANGIOGRAM HISTORY: Chest pain with nonspecific abnormal stress test. TECHNIQUE: CT angiography of the coronary arteries was performed after the administration of 100 mL of Optiray 350. Images were also obtained precontrast for the purposes of calcium scoring. The patient's heart rate and blood pressure at the time of the examination were 67-7 8 beats per minute. Images were transferred to a 3D workstation for additional post-processing. FINDINGS: The coronary arteries are left system dominant. Right coronary system: No calcified or noncalcified atherosclerotic plaque. Left coronary system: No calcified or noncalcified atherosclerotic plaque. The calculated calcium score is 0. Other findings: Small hiatal hernia. Old granulomatous disease. IMPRESSION: Coronary calcium score is 0. No obstructive coronary artery disease. Dictated by: Baldemar Guevara MD The radiology attending physician has personally reviewed this study, and had reviewed and/or edited this written report and agrees with it. Electronically signed by: Alana Hall M.D. Philip Ro MD IMG CT PROCEDURES Final R esult * Screening Mammogram Bilateral W Tanner (09/15/2024 8:10 AM SHOP TAILOR) Anatomical Region Laterality Modality Breast Bilateral Mammography Impressions 09/15/2024 8:20 AM SHOP TAILOR BI-RADS ATLAS category (overall): 2 - Benign There is no mammographic evidence of malignancy. A 1 year screening mammogram is recommended. The patient has been or will be contacted. We recommend annual screening mammography for women at average risk of breast cancer beginning at age 40, based on guidelines of the [employer] (ACR Practice Parameter for the Performance of Screening and Diagnostic Mammography) and [place] College of Obstetricians and Gynecologists. For women with and elevated risk of breast cancer, please refer to the ACR Practice Parameter for specific screening recommendations. The patient will be entered into a reminder system with a target due date of 1 year for her next screening exam. Narrative 09/15/2024 8:20 AM SHOP TAILOR Screening Mammogram Bilateral W Tanner: 09/15/24 The [...] [place] Care Teams Picu Nurse Relationship Specialty Start Date End Date Kolby Brink MD [address] [place] [address] [place] [id number] PCP - General Family Medicine 04/10/25
--- OUTSIDE RECORDS SUMMARY | 2025-06-25 07:40 | XMS_ITS | Data Portability ---
Author Organization [place] - [facility] OFFICE Address [address] [place] [address] Care Team Providers Care Tank House Supervisor Name Role Phone EDUARDO MCCLOUD Primary Care Provider [phone] Assessment No assessment recorded. Plan of Treatment Reminders Order Date Submit Date Provider Last Modified By Organization Details Last Modified Time Details Appointments None recorded. Lab None recorded. Referral None recorded. Procedures None recorded. Surgeries None recorded. Imaging stress echocardiog [email or web address] 2015 016 Not available 6 04:47:14 electrocard iogram, POC 2015 016 Not available 6 04:47:14 Medication Orders None recorded. Patient TargetsNo [...] cholesterol diet advised Low sodium diet advised. [email or web address] Not available 12/14/2015 15:56:45 Reason for Referral None Reported. Results Created Date Observation Date Name Description Value Unit Range Abnormal Flag Note LastModifiedBy Organization Detail LastModifiedTime 12/14/19 16 01/20/2016 dominga barber am, POC Result Not Available Isacc Mensah MD [address], [place], [address], 12/14/2015 15:22:55 12/14/19 16 12/08/2015 elect avis barber am No observ ation record ed. [email or web address] Not Available 2015 09:36:00 12/28/19 16 12/24/2015 stres s echoc ardio gram No observ ation record ed. [email or web address] Not Available 2015 16:39:58 12/14/19 25 12/11/2024 elect avis lyngr am No observ ation record ed. [email or web address] Not Available 2024 10:23:32 Result Notes None recorded. Problems Name Problem SNOMED Code Status Onset Date Resolution Date Notes Provider Name and Address Organization Details Recorded Time Hypothyroidism 85937498 Active 2015 [place] [facility] 6 11:36:22 Chest pain 25742585 Active 2015 [place] [facility] 6 11:36:32 Benign essential hypertension 4142278 Active 2024 [place] [facility] 5 16:48:15 Mitral valve prolapse 005652397 Active 2024 [place] [facility] 5 16:48:24 Problem Notes None recorded. Procedures Surgical History Date Name Laterality Status Provider Name and Address Organization Details Recorded Time 08/06/19 21 [facility] 12/11/2024 19:23:03 08/06/18 94 Thyroid [facility] 12/11/2024 19:21:50 Imaging Results None recorded. Procedure Notes None recorded. Medical Equipment None [...] Available Not Available No t Available Fluvirin 45 mcg (15 mcg x 3)/0.5 mL [...] No t Available Vitals Date Recorded Body height Body mass index (BMI) Body weight Heart rate Oxygen saturation Systolic And Diastolic Provider Name and Address Organization Details Last Updated DateTime 5 160.02 cm 33.1 kg/m2 56308.7 7 g 94 /min 99 % 132/82 mm[Hg] Estefania Miles [facility] 5 19:17:11 Date Recorded Body weight Body height Body mass index (BMI) Heart rate Oxygen saturation Systolic And Diastolic Provider Name and Address Organization Details Last Updated DateTime 6 38262.1 9 g 160.02 cm 28.2 kg/m2 69 /min 99 % 118/80 mm[Hg] Mayo Orourke [facility] 6 15:26:20 Social History Question Answer Notes LastModified by Organizat ion Details LastModified Time Tobacco Smoking Status Never Smoker [place] Kalp[place], [place] - [facility] 12/11/2015 11:37:14 Do You Have An Advance [...] 12/14/2015 What Is Your Relationship Status? Single [email or web address] Information not available 12/11/2024 General Stress Level Medium Information not available 12/14/2015 Sex: Unknown Functional Status Question Answer Note LastModified by Organizat ion Details LastModified Time What is your level of alcohol consumption? 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 Moderate Information not available 12/14/2015 Mental Status None recorded. Family History Relationship Description Onset Age of this Age Resolved Age Notes LastModified by Organization Details LastModified Time Father Aortic valve disorder 80 [email or web address] Not available 12/04 15:51:38 Father Irregular heart beat [email or web address] Not available 12/11 19:24:32 Mother Diabetes mellitus [email or web address] Not available 2024 19:23:29 Brother Irregular heart beat [email or web address] Not available 12/11 19:24:32 Sister Irregular heart beat [email or web address] Not available 12/11 19:24:32 Notes:No prematude CAD Medical History Condition Response Thyroid Disease Y Gynecological HistoryNo gynecological history recorded. Obstetrics History GPAL:G 0 P 0 0 0 0 Past Encounters Encounter ID Performer Location Encounter Start Date Encounter Closed Date Diagnosis/Indication Diagnosis SNOMED-CT Code Diagnosis ICD10 Code Diagnosis IMO Codes Diagnosis Note [id number] Isacc Mensah MD [address] [place] [address] 12/14/2015 15:17:47 12/14/2015 16:01:17 Benign essential hypertension 6186993 I10 Atypical chest pain 1025 67369 R07.89 Mitral valve prolapse 40 2284582 I34.1 [id number] Isacc Mensah MD [place] OFFICE [address] [place] [address] 12/11/2024 18:41:11 12/11/2024 19:38:27 Benign essential hypertension 0248061 I10 Mitral valve prolapse 40 5188001 I34.1 Obtain echo to evaluate for structural /functiona l disease. History of hypothyroidism 449243389 Z86.39 245323 Atypical chest pain 1025 39749 R07.89 249052 Treadmill Myoview Stress test, has high [place] Risk score. Has Known CAD, or CAD risk equivalent . To look for any ischemia. Dyslipidemia 332977998 E 78.5 493926 Needs to keep LDL less than 70, [...] Member ID Mena Member ID Guarantor Name 01/07/2025 1 [employer] [id number] Janie Peguero [id number] Janie Peguero 03/20/2025 1 [place] [id number] Janie Peguero [id number] Janie Peguero Notes Date Note Type Note Provider Name and Address Organization Details Recorded Time 12/14/2015 text/html CC: chest pain 50 years-old Female with no significant medical history in the past is here for follow up She was in ER in 12/08/15 because of Chest pain. EKG showed normal sinus rhythm without acute changes. No known history of CAD, MA, Arrhythmia, or valvular heart disease No orthopnea, [...] 38, ALT 25. Isacc Mensah MD [address] [place], [address], [facility] 12/14/2015 15:57:01 12/11/2024 text/html 12/11/24CC: Chest pain59 years-old Female with h/o benign essential [...] acute changes. No known history of CAD, MA, Arrhythmia, or valvular heart disease+ Results from [...] 38, ALT 25. Isacc Mensah MD [address] [place], [address], [facility] 12/11/2024 19:33:22 OBGyn Episode No OBEpisode recorded.
--- OUTSIDE RECORDS SUMMARY | 2025-06-25 07:40 | XMS_ITS | Encounter Summary ---
Author Organization [facility] Healthcare Address [address] [place] [address] Care Team Providers Care Sales Engineering Manager Name Role Phone Kolby Brink MD Primary Care Provider [phone] Encounter Details Date Type Department Care Team (Late st Contact Info) Description 04/24/2025 Results Follow-Up [facility] Medical Group Cardiology [address] [place] [address] Philip Ro MD [address] [facility] [address] [facility] [address] [place] [address] CTA Heart and Coronary Arteries W Morphology when Performed Social History Tobacco Use Types Packs/Day Years [...] on file Legal Sex Female 5:23 AM 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 Gender Identity Not on file Sexual Orientation Not on file 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 Not on file Not on file Not on file documented as of this encounter Functional Status * BP Location Answer Date of Assessment Author Right arm 04/30/2025 8:21 AM Nani Hodges MA * BP Location Answer Date of Assessment Author Right arm 04/30/2025 8:21 AM CDT Nani Gutiérrez MA documented as of this encounter Plan of Treatment Not on file documented as of this encounter Visit Diagnoses Not on filedocumented in this encounter Care Teams Sales Engineering Manager Relationship Specialty Start Date End Date Kolby Brink MD [address] [facility] [address] [place] [place] [address] PCP - General Family Medicine 04/10/25 documented as of this encounter
--- OUTSIDE RECORDS SUMMARY | 2025-06-25 07:40 | XMS_ITS | Encounter Summary ---
Author Organization [facility] Address 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 Gender Identity Not on file Sexual Orientation [...] PM CDT Narrative 01/01/2008 5:49 PM CDT [facility] [address] [place], [place] [address] Admit Date: 01/01/2008 SUDHIR CHICHO Sex: F Admit Prov: KOKO GARVEY Date: 1965 Primary Care Prov: PCP , NONE; DANIEL KEITH CMRN: [id number] W N: [id number] [facility] Ordering Prov: KOKO GARVEY Accession Number: [id number] Interpretation BILATERAL SCREENING DIGITAL MAMMOGRAMS WITH COMPUTER [...] Procedure Note Ivis Falk MD - 01/01/2008 [address] [place], [place] [address] Admit Date: 01/01/2008 SUDHIR CHICHO Sex: F Admit Prov: KOKO GARVEY Date: 1965 Primary Care Prov: PCP , NONE; DANIEL KEITH CMRN: [id number] W N: [id number] Room: [facility] Ordering Prov: KOKO GARVEY Interpretation BILATERAL SCREENING DIGITAL MAMMOGRAMS WITH COMPUTER [...] 01/01/2008 17:49 Transcribed: 01/01/2008 16:25 DKT Koko Garvey MD MAMMO ORDERABLES Final Result documented in this encounter Visit Diagnoses Diagnosis Other screening mammogram documented in this encounter Care Teams Service Station Equipment Mechanic Relationship Specialty Start Date End Date Conversion, History PCP - General 12/17/06 documented as of this encounter
--- OUTSIDE RECORDS SUMMARY | 2025-06-25 07:40 | XMS_ITS | Encounter Summary ---
Author Organization [employer] Address [address] [place] [address] Care Team Providers Care Compliance Spec Name Role Phone Conversion, History Primary Care Provider Sharonda briseno Encounter Details Date Type Department Care Team (Late st Contact Info) Description 01/03/2007 Outpatient Historical HIS [facility] [address] [facility] [place] [address] [place] [address] Sebaceous Cyst (Primary Dx) Social History Tobacco Use Types Packs/Day Years Used Date Smoking Tobacco: Never Assessed Comments Unknown Sex and Gender Information Value Date Recorded Sex Assigned at Not on file Legal Sex Female 3:29 AM TRANSMITTER ENGINEER Gender Identity Not on file Sexual Orientation Not on file documented as of this encounter Plan of Treatment Not on file documented as of this encounter Visit Diagnoses Diagnosis Sebaceous cyst- Primary documented in this encounter Care Teams Compliance Spec Relationship Specialty Start Date End Date Conversion, History PCP - General 12/17/06 documented as of this encounter
--- OUTSIDE RECORDS SUMMARY | 2025-06-25 07:40 | XMS_ITS | Clinical Summary ---
Author Organization [facility] Address [address] [place] [address] Care Team Providers Care Kiln Fireman Name Role Phone Kolby Brink MD Primary Care Provider [phone] Allergies No known active allergies Medications SYNTHROID [...] (05/20/2021): Added automatically from request for surgery [id number] Status post laparoscopic cholecystectomy 021 Symptomatic varicose veins, right 12/27/2020 Acute cholecystitis 12/21/2020 Hair loss disorder 09/28/2020 Screening for colon cancer 06/28/2020 Overview (06/28/2020): Added automatically from request for surgery [id number] Family history of colon cancer 06/28/2020 Overview (06/28/2020): Added automatically from request for surgery [id number] Family history of colon cancer 06/28/2020 Overview (12/21/2020): Added automatically from request for surgery [id number] Hypothyroidism, unspecified 05/23/2016 Immunizations Immunization Administration Dates [...] CDT Gender Identity Female 08/03/2021 1:50 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 Sexual Orientation Not on file Last Filed [...] 2015 Zoster Vaccines (1 of 2) 2015 Cervical Cancer Screening Pap Smear (Age 30 to 64) Every 3 Years 05/09/2024 05/09/2021, 05/07/2020, 05/30/2019 PHQ-2 (Physician [place]) 08/06/2024 05/20/2024 COVID-19 Vaccine (3 - season) 2025 11/14/2020, 10/24/2020 Influenza Adult (#1) 2025 05/19/2024, 05/18/2023, 05/12/2022, Additional history exists Cervical Cancer Screening Pap with HPV Testing (Age 30 to 64) Every 5 Years 05/07/2025 05/07/2020, 05/30/2019 Cervical Cancer Screening with HPV 05/07/2025 Mammogram Screening 09/14/2025 09/14/2023, 09/13/2022, 09/12/2021, Additional history exists DTaP, Tdap and Td Vaccines (2 - Td or Tdap) 03/27/2030 03/27/2020 Colorectal Cancer Screening Colonoscopy (10 Years) 06/17/2031 06/17/2021, 07/14/2020 Hepatitis A Vaccines Aged Out No long er eligible based on patient's age to complete this topic Meningococcal B Vaccine Aged Out No l [...] independently General No Ivis Cano, RN Insurance [facility] Advance Directives * Full Code (Latest Code Status on File) Date Activated Date Inactivated Comments 12/21/2020 6:27 PM 12/23/2020 10:30 PM Care Teams Kiln Fireman Relationship Specialty Start Date End Date Kolby Brink MD PCP - General FAMILY PRACTICE 05/17/20
--- OUTSIDE RECORDS SUMMARY | 2025-06-25 07:40 | XMS_ITS | Clinical Summary ---
Author Organization [facility] [employer] Address [address] [place] [address] Care Team Providers Care Stringed Instrument Assembler Name Role Phone Unavailable Primary Care Provider Unavailabl e Source Comments [facility] [employer],non-owned Affiliates and Associated Physician Practices is amultiple site organization consisting of ambulatory clinics and hospital sitesin [place], [place], [place] and [place]. This disclosure is being madepursuant to the Care Everywhere program and may not contain all information available regarding this patient. Last updated 18.[facility] [employer] Allergies No known active allergies Medications * [...] on file Legal Sex Female 9:25 AM ASSOCIATE EMBALMER/FUNERAL DIRECTOR Gender Identity Not on file Sexual Orientation Not on file Last Filed Vital Signs Vital Sign Reading Time Taken Comments Blood Pressure 128/80 09/23/2019 2:04 PM ASSOCIATE EMBALMER/FUNERAL DIRECTOR Pulse 91 09/23/2019 2:04 PM ASSOCIATE EMBALMER/FUNERAL DIRECTOR Temperature 37.1 C (98.8 F) 09/23/2019 2:04 PM ASSOCIATE EMBALMER/FUNERAL DIRECTOR Respiratory Rate 16 09/23/2019 2:04 PM ASSOCIATE EMBALMER/FUNERAL DIRECTOR Oxygen Saturation 98% 09/23/2019 2:04 PM ASSOCIATE EMBALMER/FUNERAL DIRECTOR Inhaled Oxygen Concentration - - Weight 90.7 kg (200 lb) 09/23/2019 2:04 PM ASSOCIATE EMBALMER/FUNERAL DIRECTOR Height 160 cm (5' 3) 09/23/2019 2:04 PM ASSOCIATE EMBALMER/FUNERAL DIRECTOR Body Mass Index 35.43 09/23/2019 2:04 PM ASSOCIATE EMBALMER/FUNERAL DIRECTOR Plan of Treatment Health Maintenance Due Date Last Done Comments COLOGUARD (AGES 45-75) - COLON CA SCREENING 1965 CT COLONOGRAPHY - COLON CA SCREENING 1965 FIT - COLON CA SCREENING 1965 FLEX SIG - COLON CA SCREENING 1965 LIPID TESTING 1965 HIV SCREENING 1980 HEPATITIS C SCREENING 08/07/1983 DTAP/TDAP/TD VACCINES (1 - Tdap) 1984 HEPATITIS B VACCINE (1 of 3 - 19+ 3-dose series) 1984 PAP with HPV 1995 PNEUMOCOCCAL VACCINE 50+ (1 of 1 - PCV) 2015 ZOSTER VACCINE (1 of 2) 2015 SCREENING FOR DIABETES 09/23/2019 Cervical Cancer Screening 05/30/2022 PAP SMEAR 05/30/2022 05/30/2019 DEPRESSION SCREENING 08/06/2024 COVID-19 VACCINE ( season) 2025 11/14/2020, 10/24/2020 INFLUENZA VACCINE (#1) 2025 , 05/12/2022, 05/17/2021, [...] patient's age to complete this topic Insurance [employer]
--- OUTSIDE RECORDS SUMMARY | 2025-06-25 07:40 | XMS_ITS | Encounter Summary ---
Author Organization [employer] [facility] Address 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
--- OUTSIDE RECORDS SUMMARY | 2025-06-25 07:40 | XMS_ITS | Encounter Summary ---
Author Organization [facility] Address [address] [place] [address] Care Team Providers Care Weatherstrip Machine Operator Name Role Phone Conversion, History Primary Care Provider Sharonda briseno Encounter Details Date Type Department Care Team (Late st Contact Info) Description 06/23/2025 External Device Data ST[place] ABSTRACTION Provider, Abstract NO ADDRESS ON FILE Social History Tobacco Use Types Packs/Day Years Used Date Smoking Tobacco: Never Passive Smoke Exposure: Never Smokeless Tobacco: Never Alcohol Use Standard Drinks/Week Comments Yes 0 (1 standard drink = 0.6 oz pur e alcohol) rare Comments No Sex and Gender Information Value Date Recorded Sex Assigned at Not on file 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
--- OUTSIDE RECORDS SUMMARY | 2025-06-25 07:40 | XMS_ITS | Encounter Summary ---
Author Organization [employer] Address [address] [place] [address] Care Team Providers Care Wheel Alignment Mechanic Name Role Phone Conversion, History Primary Care Provider Sharonda briseno Encounter Details Date Type Department Care Team (Latest Contact Info) Description 12/17/2006 Outpatient Historical HIS [facility] [place], [place] [address] [facility] [place] [address] [place] [address] Ganglion of Joint (Primary Dx) Social History Tobacco Use Types Packs/Day Years Used Date Smoking Tobacco: Never Assessed Comments Unknown Sex and Gender Information Value Date Recorded Sex Assigned at Not on file Legal Sex Female 3:29 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
--- OUTSIDE RECORDS SUMMARY | 2025-06-25 07:40 | XMS_ITS | Patient Health Record ---
Author Organization [facility] Address [address] [place], [place] [address] Care Team Providers Care Weed Science Research Technician Name Role Phone Kolby Brink Unavailable Unavailable Reason For Referral No Information Medications Medication SIG (Take, Route, Frequency, Duration) Notes Start Date End Date Status cholecalciferol 0.025 MG Oral Tablet ORAL cholecalciferol 0.025 MG Ora l TabletOriginal Medicationcholecalciferol 0.025 MG Oral Tablet *Reorder from [employer] for eRx and Interaction Alerts* 6 Active levothyroxine sodium 0.088 MG Oral Tablet [Synthroid] ORAL levothyroxine sodium 0.088 M G Oral Tablet [Synthroid]Original Medicationlevothyroxine sodium 0.088 MG Oral Tablet [Synthroid] *Reorder from [employer] for eRx and Interaction Alerts* 6 Active levothyroxine sodium 0.1 MG Oral Tablet [Levoxyl] ORAL levothyroxine sodium 0.1 MG Oral Tablet [Levoxyl]Original Medicationlevothyroxine sodium 0.1 MG Oral Tablet [Levoxyl] *Reorder from [employer] for eRx and Interaction Alerts* 3 Active Nabumetone 500 MG Oral Tablet ORAL nabumetone 500 MG Oral TabletOriginal Medicationnabumetone 500 MG Oral Tablet *Reorder from [employer] for eRx and Interaction Alerts* 3 Active Social History Social History Additional Details Category Social Info Options Details Migrated Social History Migrated Social History Alcohol intake : , History of tobacco use : , Smoking Status : Never smoked Plan Of Treatment No Information Insurance Providers Payer Name Payer Address Payer Phone Subscriber Number Group Number Insured Name Patient Relationship to Insured Coverage Start Date Coverage End Date [facility] ATTN CLAIMS [address] [place] [address] [id number] CHICHO DRAPER Self - patient is the insured
--- OUTSIDE RECORDS SUMMARY | 2025-06-25 07:40 | XMS_ITS | Encounter Summary ---
Author Organization [facility] Address [address] [place] [address] Care Team Providers Care Train Gate Attendant Name Role Phone Kolby Brink MD Primary Care Provider [phone] Encounter Details Date Type Department Care Team (Late st Contact Info) Description 12/24/2020 Telephone [facility] Med/Surg [address] [place] [address] Naomi Marie CNA Social History [...] CDT Gender Identity Female 08/03/2021 1:50 PM SUPERVISOR GLUING Sexual Orientation Not on file COVID-19 Exposure [...] on filedocumented in this encounter Care Teams Train Gate Attendant Relationship Specialty Start Date End Date Kolby Brink MD PCP - General FAMILY PRACTICE 05/17/20 documented as of this encounter
--- OUTSIDE RECORDS SUMMARY | 2025-06-25 07:40 | XMS_ITS | Encounter Summary ---
Author Organization [employer] Address [address] [place] [address] Care Team Providers Care Public Area Attendant Name Role Phone Conversion, History Primary Care Provider Sharonda briseno Encounter Details Date Type Department Care Team (Latest Contact Info) Description 02/13/2005 Outpatient Historical [facility] STE[facility]EN [place], Koko Gamez MD NO ADDRESS ON FILE SCREENING MAMM-MAILG NEOPL-OTHER (Primary Dx) Social History Tobacco Use Types Packs/Day Years Used Date Smoking Tobacco: Never Assessed Comments Unknown Sex and Gender Information Value Date Recorded Sex Assigned at Not on file 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
--- OUTSIDE RECORDS SUMMARY | 2025-06-25 07:40 | XMS_ITS | Encounter Summary ---
Author Organization [facility] Address Pending sale to [facility] [place] [address] Care Team Providers Care Hotel Breakfast Attendant Name Role Phone Kolby Brink MD Primary Care Provider [phone] Encounter Details Date Type Department Care Team (Late st Contact Info) Description 07/06/2020 Prep for Procedure [facility] [address] [place], [place] [id number] Darwin Apple MD [address] [place] [id number] Social History Tobacco Use Types Packs/Day Years Used Date Smoking Tobacco: Never Smokeless Tobacco: Never Alcohol Use Standard Drinks/Week Comments Not Currently 0 (1 standard drink = 0.6 oz pur e alcohol) Comments Unknown Sex and Gender Information Value Date Recorded Sex Assigned at Not on file Legal Sex Female 8:11 PM CDT Gender Identity Female 08/03/2021 1:50 PM FAMILY PRACTICE DOCTOR Sexual Orientation Not on file COVID-19 Exposure Response Date Recorded In the last month, have you been in contact with someone who was confirmed or suspected to have Coronavirus / COVID-19? No / Unsure 06/25/2020 2:12 PM FAMILY PRACTICE DOCTOR documented as of this encounter Plan of Treatment Not on file documented as of this encounter Results * PRE-SURGICAL/PRE-PROCEDURE CORONAVIRUS (COVID 19) (07/11/2020 9:19 AM FAMILY PRACTICE DOCTOR) CORONAVIRUS SARS COV 2 PCR (RESP) NOT DETECTED NOT DETECTED 07/12/2020 5:16 PM FAMILY PRACTICE DOCTOR [facility] Comment: A Not Detected (negative) [...] providers and patients using the following websites: https://www.[employer].IDbyME/home/Covid-19/HCP/NAAT/fact-sheet2 https://www.[employer].IDbyME/home/Covid-19/Patients/NAAT/ fact-sheet2 This test has been authorized by the FDA under an Emergency Use Authorization (EUA) for use by authorized laboratories. Due to the current public health emergency, [facility] is receiving a high volume of samples [...] about COVID-19 can be found at the [facility] website: www.[employer].IDbyME/Covid19. Test performed at [facility] [place] [id number] [place] [id number] Director: GIBSON GUTIÉRREZ DO,MPH FIRST TEST YES 07/11/2020 8:50 AM [facility] EMPLOYED IN HEALTHCARE NO 07/11/2020 8:50 AM [facility] SYMPTOMATIC DEFINED BY CDC NO 07/11/2020 8:50 AM [facility] DATE OF SYMPTOM ONSET UNKNOWN 07/11/2020 9:58 AM FAMILY PRACTICE DOCTOR [facility] HOSPITALIZATION STATUS NO 07/11/2020 8:50 AM FAMILY PRACTICE DOCTOR [facility] PATIENT IN ICU NO 07/11/2020 8:50 AM FAMILY PRACTICE DOCTOR [facility] RESIDENT OF CONGREGATE CARE NO 07/11/2020 8:50 AM FAMILY PRACTICE DOCTOR [facility] NOT 07/11/2020 8:50 AM FAMILY PRACTICE DOCTOR [facility] PATIENT'S RACE WHITE OR 07/11/2020 8:50 AM FAMILY PRACTICE DOCTOR [facility] ETHNICITY NONHISPANIC 07/11/2020 8:50 AM FAMILY PRACTICE DOCTOR [facility] SOURCE (QST) NASOPHARYNGEAL SWAB 07/11/2020 8:50 AM FAMILY PRACTICE DOCTOR [facility] NASOPHARYNGEAL SWAB / Unknown 07/11/2020 9:19 AM FAMILY PRACTICE DOCTOR us Darwin Apple MD MICROBIOLOGY - GENERAL ORDERABLE S Final Result Performing Organization Address City/State/[facility] Co de Phone Number [facility] [address] [place] [address], [facility] [address] documented in this encounter Visit Diagnoses Diagnosis Preop testing- Primary Preoperative examination, unspecified documented in this encounter Additional Health Concerns Infection Onset Date Last Indicated Resolved Time COVID-19 Rule Out 07/11/2020 07/11/2020 07/12/2020 5:16 PM FAMILY PRACTICE DOCTOR documented as of this encounter Care Teams Hotel Breakfast Attendant Relationship Specialty Start Date End Date Kolby Brink MD PCP - General FAMILY PRACTICE 05/17/20 documented as of this encounter
--- OUTSIDE RECORDS SUMMARY | 2025-06-25 07:40 | XMS_ITS | Encounter Summary ---
Author Organization [facility] Care Team Providers Care Relations Specialist Name Role Phone Unknown, Notinfcristin Primary Care Provider Unavail able Kolby Brink MD Primary Care Provider [phone] Encounter Details Date Type Department Care Team (Latest Contact Info) Description 12/24/2015 Orders Only [facility] ProviderAlex MD [address] [place] [id number] Social History Tobacco Use Types Packs/Day Years Used Date Smoking Tobacco: Never Assessed Comments Unknown Sex and Gender Information Value Date Recorded Sex Assigned at Not on file Legal Sex Female 5:23 AM SUPERVISOR AREA Gender Identity Not on file Sexual Orientation [...] on filedocumented in this encounter Care Teams Relations Specialist Relationship Specialty Start Date End Date Unknown, Ishan PCP - General 03/11/18 05/19/19 Kolby Brink MD [address] [place] [address] PCP - General Family Medicine 04/10/25 documented as of this encounter
--- OUTSIDE RECORDS SUMMARY | 2025-06-25 07:40 | XMS_ITS | Encounter Summary ---
Author Organization [facility] Address [address] [place] [address] Care Team Providers Care Typer Name Role Phone Conversion, History Primary Care Provider Sharonda briseno Encounter Details Date Type Department Care Team (Late st Contact Info) Description 05/25/2025 Results Follow-Up [facility] - Medical [facility] [address] [place], [place] [id number] [address] [phone] Chandan Ingram MD [address] [place] [address] [place] [phone] CERV/VAG CYTO AGE BASED SCREEN PAP Social History Tobacco Use Types Packs/Day Years Used Date Smoking Tobacco: Never Passive Smoke Exposure: Never Smokeless Tobacco: Never Alcohol Use Standard Drinks/Week Comments Yes 0 (1 standard drink = 0.6 oz pur e alcohol) rare Comments No Sex and Gender Information Value Date Recorded Sex Assigned at Not on file Legal Sex Female 3:29 AM FIRST ASSIST Gender Identity Not on file Sexual Orientation Not on file documented as of this encounter Plan of Treatment Not on file documented as of this encounter Visit Diagnoses Not on filedocumented in this encounter Care Teams Typer Relationship Specialty Start Date End Date Conversion, History PCP - General 12/17/06 documented as of this encounter
[2025-06-25 09:25] LABS: Free T4 Free Thyroxine 1.43 ng/dL (0.78-2.19)
[2025-06-25 09:37] LABS: Thyroid Stimulating Hormone 0.747 uIU/mL (0.465-4.680)
== END 2025-06-25 07:34 | disposition home or self-care (01) ==
LOC: ANHLAB 07:36
PROVIDERS: PCP Family Medicine; Visit Provider Internal Medicine Endocrinology, Diabetes & Metabolism
DX: E03.9 Hypothyroidism, unspecified (principal)
CPT/HCPCS: 36415; 84439; 84443